=== PATIENT | female | born 1945 | race Caucasian/White ===

== ENCOUNTER 2016-06-20 19:28 | Emergency (ER) | payer OTHER ==
[~2016-06-20] VITALS: Ht 162.6 cm; Wt 57.6 kg
--- NOTE | ~2016-06-20 | EKG ---
[place] [address] [facility] [place] [address] ELECTROCARDIOGRAM REPORT Name: MALKANAYELY RICHEY Lilia Room #: [facility]#: [id number] Admission: 06/20/16 Attend Phys: Discharge: 06/20/16 Date of : 47 Report #: [id number] THIS REPORT FOR: //name// [facility] ED Test Date: 2016-06-20 Test Time: 20:30:47 Pat Name: NAYELY ACE Department: Room: Gender: F Ultrasonic Solderer: NABIL : 1945 Requested By: Aniyah Cassidy Order Number: [id number] MD: Saul Armijo Measurements Intervals [place] Rate: 64 P: 58 NM: 166 QRS: 26 QRSD: 77 T: 35 QT: 418 QTc: 432 Interpretive Statements Sinus rhythm Cannot rule out septal infarct, old Borderline low voltage, extremity leads No previous ECG available for comparison Electronically Signed On 06-21-2016 14:24:33 NETWORK TECHNICAL ANALYST by Saul Armijo [email or web address] <ELECTRONICALLY SIGNED> By: Saul Armijo MD, [facility] 06/21/16 1424 2030 29 Saul Armijo MD, FACC /EPI
[2016-06-20] MEDS ORDERED: LEXAPRO20 MG PO (20:19)
[2016-06-20] MEDS ORDERED: ATENOLOL 25MG T25 MG PO (20:19)
[2016-06-20] MEDS ORDERED: PRILOSEC 20 MG20 MG PO (20:20)
[2016-06-20] MEDS ORDERED: OXYCONTIN10 M1 PO (20:20)
[2016-06-20] MEDS ORDERED: XANAX 0.5 MG0.5 MG PO (20:21)
[2016-06-20 20:51] LABS: HEMATOCRIT 37.4 % (37.0-47.0); HEMOGLOBIN 13.1 gm/dL (12.0-15.0); MCH 31.1 pg (26.0-34.0); MCHC 34.9 % (28.0-37.0); MCV 89.1 fL (80.0-100.0); PLATELET COUNT 220 thou/uL (150-400); RDW 14.4 % (10.5-14.5); WBC 6.6 thou/uL (4.0-11.0)
[2016-06-20 21:14] LABS: MANUAL DIFF YES
[2016-06-20 21:20] LABS: URINE BILIRUBIN NEGATIVE (Negative); URINE BLOOD NEGATIVE (Negative); URINE COLOR YELLOW; URINE GLUCOSE-RANDOM* NEGATIVE (Negative); URINE KETONES NEGATIVE (Negative); URINE LEUKOCYTES-REFLEX NEGATIVE (Negative); URINE PROTEIN (DIPSTICK) NEGATIVE (Negative)
[2016-06-20 21:42] LABS: ANION GAP 5 mmol/L (7-16); BUN 12 mg/dL (7-18); CHLORIDE 99 mmol/L (98-107); CO2 32 mmol/L (21-32); CREATININE 0.6 mg/dL (0.6-1.3); GLUCOSE 113 mg/dL (70-99); POTASSIUM 3.8 mmol/L (3.5-5.1); SODIUM 136 mmol/L (136-145)
[2016-06-20 21:52] LABS: ABSOLUTE NEUTROPHILS 3.5 thou/uL (1.4-8.2); ATYPICAL LYMPHS 2 %; NUCLEATED RBCS 1 /100WBC; TOTAL CELL COUNT 100; TROPONIN-I < 0.04 ng/mL (<0.04-0.07)
[2016-06-20 23:13] VITALS: BP 96/67
== END 2016-06-20 23:14 | disposition home or self-care (01) ==
LOC: ER 19:28
PROVIDERS: Emergency Medicine
DX: I95.1 Orthostatic hypotension (principal); R42 Dizziness and giddiness; T50.995A Adverse effect of other drugs, medicaments and biological substances, initial encounter; I10 Essential (primary) hypertension; K21.9 Gastro-esophageal reflux disease without esophagitis; F32.9 Major depressive disorder, single episode, unspecified; F17.210 Nicotine dependence, cigarettes, uncomplicated; Z90.49 Acquired absence of other specified parts of digestive tract; Z98.890 Other specified postprocedural states; Z90.89 Acquired absence of other organs; Z88.2 Allergy status to sulfonamides; Z88.8 Allergy status to other drugs, medicaments and biological substances; Y92.89 Other specified places as the place of occurrence of the external cause

== ENCOUNTER 2016-10-13 20:27 | Inpatient (IN) | payer OTHER ==
[~2016-10-13] VITALS: Ht 165.1 cm; Wt 64.4 kg
--- NOTE | ~2016-10-13 | H ---
[facility] [place] [address] HISTORY AND PHYSICAL Name: NAYELY ACE Room #: 403-P ADM IN M.R.#: [id number] Admission: 10/13/16 Attend Phys: Nayan Ocampo MD, FAAF Discharge: Date of : 47 Report #: [id number] THIS REPORT FOR: //name// CC: Nayan Ocampo DATE OF SERVICE: 10/14/2016 CHIEF COMPLAINT: Pneumonia. HISTORY OF PRESENT ILLNESS: The patient is a 71-year-old white female admitted to the Emergency Department with a 3-day evolution of worsening shortness of breath, high fever, productive cough after having felt very well before getting sick. She is coughing a yellow green sputum. She was evaluated in the Emergency Room and found to have pneumonia. She is admitted for IV antibiotic therapy and pulmonary toilet. She is eating well, eliminating without difficulty. Since being in the hospital, she is feeling better. PAST MEDICAL HISTORY: Cholecystectomy, tubal ligation, , appendectomy, tonsillectomy, right wrist surgery, hypertension, reflux, total right hip replacement, depression, COPD. MEDICATIONS: Escitalopram 20 mg p.o. daily, atenolol 25 mg p.o. daily p.r.n. elevated blood pressure, omeprazole 20 mg p.o. daily, oxycodone 10 mg 1 p.o. q. 4 hours p.r.n. pain, alprazolam 0.5 mg p.o. q. 8 hours p.r.n. anxiety, multivitamin 1 p.o. daily. ALLERGIES: To STATINS, HMG-COA REDUCTASE INHIBITORS, SULFONAMIDE ANTIBIOTICS. SOCIAL HISTORY: She is recently , smokes cigarettes, is a retired nurse. FAMILY HISTORY: Noncontributory. REVIEW OF SYSTEMS: CONSTITUTIONAL: Fever or chills. No nausea, vomiting, diarrhea. EYES: No visual changes. ENT: No problems with hearing, swallow, taste or smell. CARDIOVASCULAR: No chest pain. She does have chest congestion and a productive cough. RESPIRATORY: She is short of breath with productive cough and a radiographically confirmed pneumonia. GASTROINTESTINAL: No abdominal pain. GENITOURINARY: No problems urinating. MUSCULOSKELETAL: She has widespread arthritic problems and was scheduled for a procedure for her ankle on the day of this admission, which had to be postponed. [address] [address] HISTORY AND PHYSICAL Name: NAYELY ACE Room #: 403-P [facility] IN [facility]#: [id number] Admission: 10/13/16 Attend Phys: Nayan Ocampo MD, FAAF Discharge: Date of : 47 Report #: [id number] DERMATOLOGIC: No disturbing lesions or rash. NEUROLOGIC: No paresis, paralysis or paresthesias. PSYCHIATRIC: Frustrated, but not depressed. Remainder of system review is negative. PHYSICAL EXAMINATION: VITAL SIGNS: Temperature 38.0, pulse 104, respirations 16, blood pressure 114/75, pulse ox on room air is 94%. She weighs 124.2 pounds or 56.34 kg. GENERAL: She is a pleasant white female in no acute distress. HEENT: Pupils equal, round, reactive to light and accommodation. Extraocular muscles intact. Pharynx erythematous. NECK: Supple. RESPIRATORY: She has scattered coarse breath sounds with diminished air movement in both lungs. ABDOMEN: Soft, nontender. EXTREMITIES: Nonedematous. NEUROLOGIC: She is intact without focal deficit. IMAGING: EKG shows normal sinus rhythm, rate 96, normal intervals, normal axis and nonspecific changes, no ischemic changes. LABORATORY EVALUATION: CBC: White count is 8.7, hemoglobin 12.7, hematocrit 36.7, platelets 294,000, 77% segmented neutrophils, 1% band forms, 12% lymphocytes, 10% monocytes. Serum chemistry: Sodium 128, potassium 4.3, chloride 95, CO2 27, BUN 6, creatinine 0.6, estimated glomerular filtration rate is 99, glucose 137, lactic acid 1.4, calcium is 8.7, total bilirubin 0.5, AST 31, ALT 16, alkaline phosphatase 90, creatinine kinase 61. Troponin less than 0.04, BNP 356, total protein 6.8, albumin 2.6. Chest x-ray done from the Emergency Department shows findings suggesting interstitial edema and infiltrate. ASSESSMENT: Community acquired pneumonia, chronic obstructive pulmonary disease with exacerbation, hyponatremia. PLAN: Admit to hospital. IV antibiotic therapy instituted in the Emergency Department. Continue home medications. Correct sodium. Follow labs and x-rays serially . Gram-positive cocci are noted in initial Gram stain. Preliminary results follow this closely, likely Streptococcal pneumoniae pneumonia. By: 00 25 Nayan Ocampo MD, FAAFP, FACEP /nt
--- NOTE | ~2016-10-13 | EKG ---
[address] [place] [address] ELECTROCARDIOGRAM REPORT Name: NAYELY ACE Room #: 403-P [facility] IN .R.#: [id number] Admission: 10/13/16 Attend Phys: Nayan Ocampo MD, FAAF Discharge: Date of : 46 Report #: [id number] THIS REPORT FOR: //name// [facility] ED Test Date: 2016-10-13 Test Time: 20:31:22 Pat Name: NAYELY ACE Department: Room: [facility] Gender: F Nut Blanker Operator: MIRYAM : 1945 Requested By: Sophia Nielson Order Number: [id number] MD: Saul Armijo Measurements Intervals [place] Rate: 96 P: 73 NJ: 150 QRS: 69 QRSD: 72 T: 50 QT: 315 QTc: 398 Interpretive Statements Sinus rhythm Probable left atrial enlargement Compared to ECG 06/20/2016 20:30:47 No significant change was found Electronically Signed On 10-14-2016 8:01:28 CDT by Saul Armijo [email or web address] <ELECTRONICALLY SIGNED> By: Saul Armijo MD, [facility] 10/14/16 0801 30 30 Saul Armijo MD, [facility] /EPI
[2016-10-13 20:27] VITALS: BP 114/75
[~2016-10-13 20:27] MED LIST: ATENOLOL 25MG T25 MG PO; LEXAPRO20 MG PO; OXYCONTIN10 M1 PO; PRILOSEC 20 MG20 MG PO; XANAX 0.5 MG0.5 MG PO
[2016-10-13 20:52] LABS: HEMATOCRIT 36.7 % (37.0-47.0); HEMOGLOBIN 12.7 gm/dL (12.0-15.0); MCH 30.4 pg (26.0-34.0); MCHC 34.7 g/dL (28.0-37.0); MCV 87.8 fL (80.0-100.0); PLATELET COUNT 294 thou/uL (150-400); RBC 4.18 mil/uL (4.20-5.00); RDW 14.3 % (10.5-14.5); WBC 8.7 thou/uL (4.0-11.0)
[2016-10-13 20:53] LABS: MANUAL DIFF YES
[2016-10-13 21:02] LABS: ANION GAP 6 mmol/L (7-16); BUN 6 mg/dL (7-18); CALCIUM 8.7 mg/dL (8.5-10.1); CHLORIDE 95 mmol/L (98-107); CO2 27 mmol/L (21-32); CREATININE 0.6 mg/dL (0.6-1.0); GLUCOSE 137 mg/dL (74-106); POTASSIUM 4.3 mmol/L (3.5-5.1); SODIUM 128 mmol/L (136-145)
[2016-10-13 21:13] LABS: ALBUMIN 2.6 g/dL (3.4-5.0); ALKALINE PHOSPHATASE 90 U/L (46-116); NT-PRO BRAIN NAT PEPTIDE 356 pg/mL (<300); SGOT 31 U/L (15-37); SGPT 16 U/L (30-65); TOTAL BILIRUBIN 0.5 mg/dL (<0.1-1.0); TOTAL PROTEIN 6.8 g/dL (6.4-8.2); TROPONIN-I < 0.04 ng/mL (<0.04-0.07)
[2016-10-13] MEDS ORDERED: MULTI VITAMIN1 EACH PO (21:13)
[2016-10-13 21:17] LABS: TOTAL CELL COUNT 100
[2016-10-13 21:19] LABS: ABSOLUTE NEUTROPHILS 6.8 thou/uL (1.4-8.2)
[2016-10-13 22:49] VITALS: BP 118/55
[2016-10-13 23:04] VITALS: BP 123/63
[2016-10-14] MEDS ORDERED: OXYCODONE HCL10 MG PO (01:28)
[2016-10-14 03:22] VITALS: BP 107/60
[2016-10-14 08:00] VITALS: BP 97/52
[2016-10-14 16:00] VITALS: BP 106/45
[2016-10-14 19:04] VITALS: BP 116/55
[2016-10-15 02:47] VITALS: BP 115/54
[2016-10-15 08:59] VITALS: BP 110/59
[2016-10-15 15:51] VITALS: BP 109/61
[2016-10-15 19:00] VITALS: BP 117/54
[2016-10-16 03:37] VITALS: BP 127/75
[2016-10-16 06:04] LABS: MCH 29.2 pg (26.0-34.0); MCHC 33.3 g/dL (28.0-37.0); MCV 87.9 fL (80.0-100.0); PLATELET COUNT 337 thou/uL (150-400); RBC 3.64 mil/uL (4.20-5.00); RDW 14.7 % (10.5-14.5); WBC 21.1 thou/uL (4.0-11.0)
[2016-10-16 06:07] LABS: HEMOGLOBIN 10.7 gm/dL (12.0-15.0)
[2016-10-16 06:08] LABS: MANUAL DIFF YES
[2016-10-16 06:25] LABS: CALCIUM 8.4 mg/dL (8.5-10.1); CREATININE 0.5 mg/dL (0.6-1.0)
[2016-10-16 07:14] VITALS: BP 134/77
[2016-10-16 07:26] LABS: ABSOLUTE NEUTROPHILS 19.4 thou/uL (1.4-8.2); MYELOCYTES 1 %; TOTAL CELL COUNT 100
[2016-10-16 07:27] LABS: ANISOCYTOSIS 1+; HYPOCHROMASIA 1+
[2016-10-16 16:33] VITALS: BP 130/76
[2016-10-16 20:00] VITALS: BP 124/72
[2016-10-17 04:00] VITALS: BP 118/58
[2016-10-17 08:36] VITALS: BP 136/83
[2016-10-17 15:53] VITALS: BP 139/81
[2016-10-17 20:24] VITALS: BP 133/69
[2016-10-18 03:16] VITALS: BP 127/76
[2016-10-18 04:23] LABS: HEMATOCRIT 32.7 % (37.0-47.0); HEMOGLOBIN 11.3 gm/dL (12.0-15.0); MCHC 34.5 g/dL (28.0-37.0); MCV 87.2 fL (80.0-100.0); PLATELET COUNT 360 thou/uL (150-400); RBC 3.75 mil/uL (4.20-5.00); RDW 14.6 % (10.5-14.5); WBC 12.3 thou/uL (4.0-11.0)
[2016-10-18 04:30] LABS: CALCIUM 8.5 mg/dL (8.5-10.1); CREATININE 0.6 mg/dL (0.6-1.0); POTASSIUM 3.6 mmol/L (3.5-5.1)
[2016-10-18 04:31] LABS: MANUAL DIFF YES
[2016-10-18 07:15] LABS: ABSOLUTE NEUTROPHILS 10.6 thou/uL (1.4-8.2); PLATELET ESTIMATE NORMAL; TOTAL CELL COUNT 100
[2016-10-18 08:00] VITALS: BP 144/85
[2016-10-18 15:59] VITALS: BP 141/94
[2016-10-18 20:00] VITALS: BP 129/91
[2016-10-19] VITALS (7 sets, daily range): BP systolic 132–144; BP diastolic 73–788
[2016-10-19] MEDS ORDERED: AUGMENTIN 875875 MG PO (15:49)
[2016-10-19] MEDS ORDERED: ZPAK PO (15:50)
[2016-10-20 03:49] VITALS: BP 123/59
[2016-10-20 07:15] VITALS: BP 128/59
[2016-10-20 13:15] VITALS: BP 133/68
== END 2016-10-20 17:01 | disposition home or self-care (01) | DRG 871 ==
LOC: ER 20:27 → EROBS 22:14 → 4N 22:14
PROVIDERS: Emergency Medicine; Family Medicine
DX: A41.9 Sepsis, unspecified organism (principal); J18.9 Pneumonia, unspecified organism; J44.0 Chronic obstructive pulmonary disease with (acute) lower respiratory infection; E87.1 Hypo-osmolality and hyponatremia; J44.1 Chronic obstructive pulmonary disease with (acute) exacerbation; I10 Essential (primary) hypertension; K21.9 Gastro-esophageal reflux disease without esophagitis; D72.829 Elevated white blood cell count, unspecified; Z96.641 Presence of right artificial hip joint; F32.9 Major depressive disorder, single episode, unspecified; Z88.2 Allergy status to sulfonamides; Z90.49 Acquired absence of other specified parts of digestive tract
CPT/HCPCS: 10091

== ENCOUNTER → 2016-10-28 | Outpatient (CLI) | payer OTHER ==
[~2016-10-28] MED LIST changes: +AUGMENTIN 875875 MG PO; +MULTI VITAMIN1 EACH PO; +OXYCODONE HCL10 MG PO; +ZPAK PO
== END ==
LOC: RAD 13:42
DX: J18.9 Pneumonia, unspecified organism (principal)

== ENCOUNTER → 2017-07-02 | Outpatient (CLI) | payer OTHER | LOC: CAT 11:01 | DX: Z13.6 Encounter for screening for cardiovascular disorders (principal) ==

== ENCOUNTER → 2017-09-15 | Outpatient (CLI) | payer OTHER | LOC: HYPER 06:51 | DX: L89.153 Pressure ulcer of sacral region, stage 3 (principal); I10 Essential (primary) hypertension; K21.9 Gastro-esophageal reflux disease without esophagitis; D84.9 Immunodeficiency, unspecified; M81.0 Age-related osteoporosis without current pathological fracture; F32.9 Major depressive disorder, single episode, unspecified; J44.9 Chronic obstructive pulmonary disease, unspecified; Z96.641 Presence of right artificial hip joint; Z87.891 Personal history of nicotine dependence ==

== ENCOUNTER → 2019-10-02 | Outpatient (CLI) | payer OTHER | LOC: RAD 14:18 | DX: M97.01XA Periprosthetic fracture around internal prosthetic right hip joint, initial encounter (principal) ==

== ENCOUNTER 2019-11-13 11:15 | Inpatient (IN) | payer OTHER ==
[~2019-11-13] VITALS: Ht 152.4 cm; Wt 53.6 kg
[2019-11-13 11:37] VITALS: BP 159/75
[2019-11-13 12:06] LABS: ABSOLUTE NEUTROPHILS 5.9 thou/uL (1.4-8.2); BASOPHILS 0.8 % (0.0-2.0); HEMATOCRIT 39.9 % (37.0-47.0); HEMOGLOBIN 13.5 gm/dL (12.0-15.0); LYMPHOCYTES 13.9 % (24.0-44.0); MCH 29.3 pg (26.0-34.0); MCHC 33.7 g/dL (28.0-37.0); MONOCYTES 7.6 % (1.0-8.0); PLATELET COUNT 249 thou/uL (150-400); POLYS 77.7 % (36.0-66.0); RBC 4.58 mil/uL (4.20-5.00); RDW 14.9 % (10.5-14.5); WBC 7.6 thou/uL (4.0-11.0)
--- NOTE | 2019-11-13 12:10 | NUR ---
SPOKE TO DR. ORLANDO AT THIS TIME - HE SPOKE TO SON WHO STATED PT FELL 1 MONTH AGO AND HAD FEVER WITH T MAX OF 98.9. PT HAS BEEN ACTING NOT HER NORMAL SELF FOR 2-3 DAYS, HX OF NON-HODGKINS LYMPHOMA. WILL CONTINUE TO MONITOR CLOSELY.
--- NOTE | 2019-11-13 12:15 | NUR ---
ADDRESS: [facility] [address], [place] [address] PHONE: [phone] EMERGENCY CONTACT: ANUPAM ACE PHONE: [phone]
[2019-11-13 12:16] LABS: URINE BILIRUBIN NEGATIVE (Negative); URINE BLOOD NEGATIVE (Negative); URINE CLARITY SL CLOUDY; URINE COLOR YELLOW; URINE GLUCOSE-RANDOM* NEGATIVE (Negative); URINE KETONES 1+ (Negative); URINE LEUKOCYTES-REFLEX NEGATIVE (Negative); URINE NITRITE-REFLEX NEGATIVE (Negative); URINE PROTEIN (DIPSTICK) NEGATIVE (Negative); URINE SPECIFIC GRAVITY 1.015 (1.005-1.035); URINE UROBILINOGEN 0.2 E.U./dl (0.2-1.0)
[2019-11-13 12:18] LABS: CALCIUM 9.6 mg/dL (8.5-10.1); CREATININE 0.8 mg/dL (0.6-1.0); POTASSIUM 4.6 mmol/L (3.5-5.1)
[2019-11-13 12:24] LABS: ALBUMIN 3.6 g/dL (3.4-5.0); TOTAL BILIRUBIN 1.1 mg/dL (0.2-1.0); TOTAL PROTEIN 7.7 g/dL (6.4-8.2)
[2019-11-13 12:35] LABS: AMP/METHAMP Negative (Negative); BARBITURATES Negative (Negative); BENZODIAZEPINES POSITIVE (Negative); COCAINE Negative (Negative); METHADONE POSITIVE (Negative); OPIATES Negative (Negative); PCP Negative (Negative)
[2019-11-13 15:14] VITALS: BP 136/68
[2019-11-13 15:54] VITALS: BP 142/63
[2019-11-13 16:55] VITALS: BP 132/72
--- NOTE | 2019-11-13 18:41 | NUR ---
Patient arrived on unit at 1605 from ED. Patient's son brought his mother to ED due to lethargy. Patient was unable to stay awake during ED assessment. She was also awake for parts of this nurse's assessment, some Admission information recieved from son via telephone. Patient has informed this nurse that she has had a headache for the last two days. Son informed this nurse that his mother was confused this am, talking about her mother, asking her son Ambrose, "where is my son Ambrose?" Dr Ocampo notified at 1600 of patient's pending Admission to . Dr Ocampo informed this nurse that he will arrive on unit at approximately 1800. He is currently here putting in orders. Patient is independent will all cares. She ambulates with a study gait. She is currently eating her Dinner with NS running in IV at left AC. Will report to on-coming nurse.
[2019-11-13 21:00] VITALS: BP 123/72
[2019-11-13] MEDS ORDERED: DULOXETINE HCL60 MG PO (23:22)
[2019-11-13] MEDS ORDERED: METHADONE HCL 110 M1 PO (23:30)
[2019-11-13] MEDS ORDERED: REMERON15 M2 PO (23:33)
[2019-11-13] MEDS ORDERED: ASPIRIN325 PO (23:39)
[2019-11-13] MEDS ORDERED: DOCUSATE SODIU250 MG PO (23:47)
--- NOTE | 2019-11-14 04:02 | NUR ---
PT TRANSFERRED FROM [facility] @2100. ON ASSESSMENT PT A&OX3 SOMETIMES FORGETFULL. IV INTACT AND FLUIDS INFUISING. [facility]REC DONE AND HOME MEDICATION SENT DOWNSTAIRS TO PHARMACY. UP WITH SBA TO THE BATHROOM. FALL PREC IN PLACE AND CALL LIGHT IN REACH. WILL CONT WITH POC TILL EOS.
[2019-11-14 04:14] VITALS: BP 100/65
[2019-11-14 06:29] LABS: HEMOGLOBIN 11.9 gm/dL (12.0-15.0); MCH 28.8 pg (26.0-34.0); MCV 87.4 fL (80.0-100.0); PLATELET COUNT 234 thou/uL (150-400); RBC 4.12 mil/uL (4.20-5.00); RDW 15.2 % (10.5-14.5); WBC 6.6 thou/uL (4.0-11.0)
[2019-11-14 06:35] LABS: CALCIUM 8.6 mg/dL (8.5-10.1); CREATININE 0.6 mg/dL (0.6-1.0); POTASSIUM 3.8 mmol/L (3.5-5.1)
[2019-11-14 07:55] VITALS: BP 127/77
--- NOTE | 2019-11-14 08:28 | EKG ---
[facility] [place] [address] ELECTROCARDIOGRAM REPORT Name: NAYELY ACE Room #: 446- ADM IN M.R.#: [id number] Admission: 11/13/19 Attend Phys: Nayan Ocampo MD, FAAF Discharge: Date of : 46 Report #: [id number] THIS REPORT FOR: cc: Nayan Ocampo MD FAA FACE Nayan Ocampo MD FAA FACE Saul Armijo MD [facility] THIS REPORT FOR: //name// [facility] ED Test Date: 2019-11-13 Test Time: 11:33:37 Pat Name: NAYELY ACE Department: Room: 44 Gender: F Superintendent Building: NUPUR : 1945 Requested By: Daryn Nash Order Number: [id number] MD: Saul Armijo Measurements Intervals [place] Rate: 91 P: 80 ME: 154 QRS: 62 QRSD: 74 T: 51 QT: 344 QTc: 424 Interpretive Statements Sinus rhythm Leftward axis Compared to ECG 10/13/2016 20:31:22 No significant changes Electronically Signed On 11-14-2019 8:26:43 CDT by Saul Armijo [email or web address] <ELECTRONICALLY SIGNED> By: Saul Armijo MD, [facility] 11/14/19 0826 1133 1133 Saul Armijo MD, [facility] /EPI
[2019-11-14 08:43] LABS: ABSOLUTE NEUTROPHILS 3.3 thou/uL (1.4-8.2); ATYPICAL LYMPHS 6 %
[2019-11-14 08:44] LABS: ANISOCYTOSIS SLIGHT; LARGE PLATELETS OCCASIONAL
--- NOTE | 2019-11-14 15:52 | NUR ---
ASSESSMENT: CM REVIEWED CHART AND MET WITH PATIENT. PT IS ALERT AND ORIENTED X4. PT REPORTS SHE LIVES AT HOME WITH HER SON. PT REPORTS THAT SHE HAS ABOUT 4 STEPS WITH HANDRAILS TO ENTER THROUGH THE FRONT BUT HAS A RAMP TO ENTER THROUGH THE BACK. PT REPORTS HER BEDROOM IS ON THE MAIN LEVEL. PT REPORTS SHE AMBULATES USING A CANE AT TIMES. PT STATES SHE HAS HAD [facility] IN THE PAST BUT NOT CURRENTLY. PT REPORTS SHE HAS NOT BEEN TO A SNF BUT USED TO WORK AT ONE. PT REPORTS THAT DR. GALLEGOS IS GOING TO DO A WORKUP TO SEE IF HER NON-HODGKINS LYMPHOMA IS BACK SHE STATES IT HAD BEEN IN REMISSION. CM WILL CONTINUE TO FOLLOW TO ASSIST NEEDED.
--- NOTE | 2019-11-14 16:43 | NUR ---
PT ASSESSED AT START OF SHIFT. PT FEELING BETTER TODAY. NO LONGER CONFUSED. DOES HAVE POOR APPETITE BUT DENIES NAUSEA. SODIUM SOME BETTER. AMBULATING STEADY TO THE BATHROOM. DR. GALLEGOS HERE THIS AFTERNOON. CALEB NOTED.
[2019-11-14 17:23] VITALS: BP 109/53
[2019-11-14 19:21] VITALS: BP 107/64
--- NOTE | 2019-11-15 02:25 | NUR ---
ASSESSED AT START OF SHIFT PT SITTING UP IN BED MORE AWAKE AND ALERT THIS SHIFTX4 FOR THIS NURSE. ASKED FOR MIDNIGHT SNACKS, CRACKERS AND VANILLA PUDDING PROVIDED PT TOLERATED IT WELL. EVENING MEDS GIVEN. OLD IV LEAKING NEW IV PLACED IN LEFT WRIST IV FLUIDS INFUSING. FALL PREC IN PLACE AND CALL LIGHT IN REACH WILL CONT WITH POC TILL EOS.
[2019-11-15 05:16] VITALS: BP 102/60
[2019-11-15 05:44] LABS: HEMATOCRIT 33.6 % (37.0-47.0); HEMOGLOBIN 11.3 gm/dL (12.0-15.0); MCH 29.5 pg (26.0-34.0); MCHC 33.5 g/dL (28.0-37.0); PLATELET COUNT 215 thou/uL (150-400); RBC 3.82 mil/uL (4.20-5.00); WBC 6.5 thou/uL (4.0-11.0)
[2019-11-15 06:12] LABS: ALBUMIN 2.6 g/dL (3.4-5.0); CALCIUM 8.5 mg/dL (8.5-10.1); CREATININE 0.5 mg/dL (0.6-1.0); POTASSIUM 3.5 mmol/L (3.5-5.1); TOTAL BILIRUBIN 0.6 mg/dL (0.2-1.0); TOTAL PROTEIN 5.6 g/dL (6.4-8.2)
[2019-11-15 07:20] VITALS: BP 104/62
[2019-11-15 11:50] LABS: ABSOLUTE NEUTROPHILS 3.1 thou/uL (1.4-8.2); ANISOCYTOSIS SLIGHT
--- NOTE | 2019-11-15 14:42 | NUR ---
ASSUMED CARE OF THE PT AT 0700. PT IS STANDBY ASSIST WITH GAIT BELT AND WALKER/IV POLE. NO C/O PAIN. PT HAS MEDS IN PHARMACY. PT HAD MRI/CT SCAN DONE/R/O STROKE/MINOR R SIDE FACIAL DROOPING. IV RESTARTED 22 G DRY AND INTACT. FALL PRECAUTIONS IN PLACE, BED IN THE LOWEST POSITION/BED ALARM ON, CALL LIGHT WITHIN REACH. WILL CONTINUE TO MONITOR THE PT. LEFT V/M FOR PTS SON TO CALL FOR UPDATE ON PT.
[2019-11-15 16:20] VITALS: BP 107/69
[2019-11-15 19:50] VITALS: BP 98/58
--- NOTE | 2019-11-16 02:31 | NUR ---
ASSUMED PT CARE AT 1900. PT A&Ox4 TONIGHT. PAIN
[2019-11-16 04:45] VITALS: BP 106/62
[2019-11-16 05:00] VITALS: BP 121/83
[2019-11-16 06:40] LABS: CHOLESTEROL 95 mg/dL (<200); HDL CHOLESTEROL 5 mg/dL (>40); LDL CHOLESTEROL 55 mg/dL (<100); SERUM ASSESSMENT Clear; TRIGLYCERIDE 175 mg/dL (<150); VLDL 35 mg/dL (<40)
--- NOTE | 2019-11-16 07:02 | HC ---
[facility] [place] [address] CONSULTATION Name: NAYELY ACE Room #: 446-P ADM IN M.R.#: [id number] Admission: 11/13/19 Attend Phys: Nayan Ocampo MD, FAAF Discharge: Date of : 46 Report #: [id number] THIS REPORT FOR: cc: Nayan Ocampo MD FAA FACEP Nayan Ocampo MD FAA FACEP Arturo Fierro MD ~ CC: Ramón Ocampo MD REQUESTING PHYSICIAN: Dr. Mc Ocampo. REASON FOR CONSULTATION: Altered mental status with history of lymphoma. HISTORY OF PRESENT ILLNESS: The patient is a very pleasant 74-year-old female who was brought in about 2 days ago for altered mental status and had a sodium of about 130. This has improved and her mentation has improved. She tells me that she is not quite back to normal. Her thinking is slightly slow, but she does not notice any other troubles. I noticed when I look at her that she has some mild left facial drooping that the nurse did not seem to be aware of, notes do not mention that. I showed the patient a picture of herself using the selfie mode in my camera and she agrees that she has not noticed that before. Neurology had supposedly seen her, but I find no note on the chart to know whether they had ____, she had not been aware of it. Because ____ caution, we will order an MRI head. The patient had last seen Dr. Fish Godfrey on 07/03/2019. At that time, he thought she was in remission. The patient currently denies any headache, visual changes. She does feel like her thinking is a little bit slow, especially finding words, but eventually gets there. She appears to be speaking the words well. I do not know her, but her speech and thought pattern appear to be grossly normal. She does have, I mentioned, just a little bit of left facial droop. She denies any pocketing or drooling. She denies any fevers or chills or swallowing difficulties, breathing difficulties. She does tell me she has lost maybe 5-10 pounds lately. She is not sure why, could be the connor pandemic, stress she said. No diarrhea, no constipation, no blood in her urine or stool. No enlarged lymph nodes. No rash. No arm or leg swelling. No heat or cold intolerance. 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 The patient received only 4 cycles of R-CHOP, was in complete remission after 6 cycles. Also, has a history of hypertension, COPD, I think, hyperlipidemia and depression. 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 Smokes up until the time of admission. No [facility] [address] [place] [address] CONSULTATION Name: NAYELY ACE Room #: 446-P [facility] IN M.R.#: [id number] Admission: 11/13/19 Attend Phys: Nayan Ocampo MD, FAAF Discharge: Date of : 47 Report #: [id number] significant alcohol, no street drugs. FAMILY HISTORY: Father had heart trouble. Mother, she is not sure. One brother who had a number of health issues. Four children, no health issues. Has 5 dogs at home. MEDICATIONS: At this time in the hospital include escitalopram 20 mg daily, Xanax 0.5 q. 8 p.r.n., aspirin 325 mg daily, methadone 10 mg b.i.d. We need to clarify what that is for. LABORATORY REVIEW: Here shows that BUN of 10, creatinine of 0.5. Liver functions normal. Albumin 2.6 after hydration. White count 6.5, hemoglobin 11.3, was 13.5 on admission. Platelets 215. Differential essentially normal. UA was fairly unremarkable. Imaging here on admission included CT head, which was nonacute. PHYSICAL EXAMINATION: VITAL SIGNS: Height is 5 feet 4 inches, 152.4 cm, weight 118.2 pounds or 53.6 kilograms. Blood pressure 102/60, O2 sat 94%, respirations 18, pulse 80, temperature 98.4. NEUROLOGIC: Face is symmetric except for some left facial drooping. When she raises her eyes or clenches her mouth, it is still slightly noticeable. As mentioned above, speech and thought pattern appear to be grossly normal, though she reports some slight slowness. LYMPHATICS: No enlarged lymph nodes in the supraclavicular, cervical, axillary, inguinal, epitrochlear region. LUNGS: Clear, symmetric without rhonchi, wheezes or rales. HEART: Regular rate. ABDOMEN: Soft, without masses, nontender. EXTREMITIES: Without clubbing or cyanosis. Sensation is normal to confrontation. She is moving, strength appears to be generally normal. She does use a walker. ASSESSMENT AND PLAN: 1. History of germinal center stage 4B non-Hodgkin's lymphoma from 07/2017, thought to be in remission. We will order CAT scans as the patient had mental status changes when she was diagnosed. We will ask ____ over, so we can compare. 2. Mental status changes with hyponatremia, but also possibly new left facial droop. We will order MRI head. The patient already on aspirin. I have asked the nurse to notify Dr. Mc Ocampo and also Neurology. 3. Hypertension. Meds per others. 4. Mood, per others. 5. Chronic obstructive pulmonary disease. Meds per others. [facility] [address] [place] [address] CONSULTATION Name: NAYELY ACE Yolande Room #: 446-P ADM IN ..#: [id number] Admission: 11/13/19 Attend Phys: N[facility]campo MD, [facility] Dis[facility]: Date of : 46 Report #: [id number] We will follow with you. <ELECTRONICALLY SIGNED> By: Arturo Fierro MD 11/16/19 0702 0658 0813 Arturo Fierro MD /nt
[2019-11-16 07:10] VITALS: BP 105/64
--- NOTE | 2019-11-16 14:52 | NUR ---
on-going assessment: CM REVIEWED CHART AND SPOKE WITH PT. ATTENDING HAS PLACED A CONSULT FOR 5N. [facility]N [facility] STATES THEY FEEL PATIENT WILL BE A GOOD CANIDATE AND THEY ARE WAITING ON OT TO SEE PATIENT AND THEN WILL SUBMIT FOR INSURANCE AUTH. WILL AWAIT FURTHER INPUT FROM 5N AT THIS TIME.
[2019-11-16 16:25] VITALS: BP 114/70
--- NOTE | 2019-11-16 16:39 | NUR ---
PT ASSESSED AT START OF SHIFT. DR. CORONADO IN EARLY TO SPEAK W/ PT RE CT SCAN RESULTS. REHAB CONSULT BY DR. HASTINGS FOR 5N. STILL HAS SLIGHT LT FACIAL WEAKNESS. SPEECH EVAL AND PT NOW ON THICKENED LIQUIDS. MEMORY SEEMS BETTER TODAY.
--- NOTE | 2019-11-16 17:23 | NUR ---
PATIENT SEEN THIS DATE BY DR. HASTINGS FOR REHAB CONSULT. PATIENT IS A CANDIDATE FOR AN ACUTE REHAB STAY. MOLD LAMINATOR SPOKE WITH PATIENT FURTHER EXPLAINING ACUTE REHAB TO PATIENT. PATIENT WAS AGREEABLE TO ACUTE REHAB STAY AND EXPRESSED WANTING TO COME TO [facility] ACUTE REHAB. DR. GALLEGOS STATES POSSIBLE ADMISSION TO REHAB TOMORROW. AUTHORIZATION REQUESTED THIS DATE.
[2019-11-16 19:42] VITALS: BP 146/61
[2019-11-16 20:27] LABS: TSH 0.786 uIU/mL (0.358-3.740)
--- NOTE | 2019-11-17 02:14 | NUR ---
ASSUMED PT CARE AT 1900. PT MUCH MORE ENERGETIC THIS EVENING. UPSET THAT DOSE OF METHADONE WAS 10MG, SHE CLAIMS TO TAKE [address] NOTIFIED AND ORDER CHANGED. ANTIBIOTIC STARTED THIS EVENING. TOLERATING NECTAR THICK LIQUIDS WELL. UP TO TOILET WITH STANDBY. CURRENTLY RESTING WITH EYES CLOSED.
[2019-11-17 04:34] VITALS: BP 125/72
[2019-11-17 06:11] LABS: HEMATOCRIT 32.3 % (37.0-47.0); HEMOGLOBIN 11.1 gm/dL (12.0-15.0); MCHC 34.3 g/dL (28.0-37.0); MCV 87.7 fL (80.0-100.0); PLATELET COUNT 197 thou/uL (150-400); RBC 3.68 mil/uL (4.20-5.00); RDW 15.3 % (10.5-14.5); WBC 6.3 thou/uL (4.0-11.0)
[2019-11-17 06:20] LABS: APTT 27.4 Seconds (24.5-32.8); INR 1.1; PROTIME 10.9 Seconds (9.3-11.4)
[2019-11-17 07:13] LABS: ALBUMIN 2.7 g/dL (3.4-5.0); CALCIUM 8.6 mg/dL (8.5-10.1); CREATININE 0.6 mg/dL (0.6-1.0); TOTAL BILIRUBIN 0.4 mg/dL (0.2-1.0); TOTAL PROTEIN 5.7 g/dL (6.4-8.2)
[2019-11-17 08:04] VITALS: BP 103/55
--- NOTE | 2019-11-17 11:32 | 2DMMODE ---
[facility] [address] [place] [address] 2 D/M-MODE ECHOCARDIOGRAM Name: NAYELY ACE Room #: 446-P ADM IN M.R.#: [id number] Admission: 11/13/19 Attend Phys: Nayan Ocampo MD, FAAF Discharge: Date of : 46 Report #: [id number] THIS REPORT FOR: cc: Nayan Ocampo MD, FAAFP FACENayan Sanderson MD FAACHRISTEN FACEWalker Smith MD ~ APPROVED REPORT Study performed: 11/17/2019 09:02:36 EXAM: Comprehensive 2D, Doppler, and color-flow Echocardiogram Patient Location: Bedside Room #: 446 Status: routine BSA: 1.49 HR: 91 bpm BP: 103/55 mmHg Rhythm: NSR Other Information Study Quality: Adequate/foreshortened apicals. Indications CVA. Hx: COPD, HTN. Echo Enhancing Agent Indication: Rule out Shunt Agent(s) / Amount(s) Used: Agitated Saline 7 cc 2D Dimensions IVSd: 9.15 (7-11mm) LVOT Diam: 20.59 (18-24mm) LVDd: 36.69 mm PWd: 9.14 (7-11mm) Ascending Ao: 35.81 (22-36mm) LVDs: 24.49 (25-40mm) Aortic Root: 36.74 mm Aortic Valve AoV Peak Everett.: 1.26 m/s AO Peak Gr.: 6.35 mmHg LVOT Max P.12 mmHg LVOT Max V: 0.88 m/s THEODORE Vmax: 2.33 cm2 Mitral Valve [facility] [address] [place] [address] 2 D/M-MODE ECHOCARDIOGRAM Name: MALKANAYELY B Room #: 446-P [facility] IN [facility]#: [id number] Admission: 11/13/19 Attend Phys: Nayan Ocampo MD, Discharge: Date of : 47 Report #: [id number] E/A Ratio: 0.8 MV Decel. Time: 178.57 ms MV E Max Everett.: 0.43 m/s MV A Everett.: 0.56 m/s MV PHT: 51.78 ms IVRT: 65.74 ms Pulmonary Valve PV Peak Everett.: 0.80 m/s PV Peak Gr.: 2.56 mmHg Tricuspid Valve TR Peak Everett.: 3.07 m/s RAP Estimate: 5.00 mmHg TR Peak Gr.: 38.00 mmHg PA Pressure: 43.00 mmHg Left Ventricle The left ventricle is normal size. There is normal LV segmental wall motion. There is normal left ventricular wall thickness. Left ventricular systolic function is normal. LVEF is 60-65%. Mild diastolic dysfunction is present (impaired relaxation pattern). Right Ventricle The right ventricle is normal size. The right ventricular systolic function is normal. Atria The left atrium size is normal. No shunting noted by contrast bubble injection. The right atrium size is normal. Aortic Valve Aortic valve leaflets are mildly thickened. Trace to mild aortic regurgitation. There is no aortic valvular stenosis. Mitral Valve The mitral valve is normal in structure. There is no mitral valve regurgitation noted. No evidence of mitral valve stenosis. Tricuspid Valve The tricuspid valve is normal in structure. Moderate tricuspid regurgitation. Estimated PAP is 40-45mmHg. Pulmonic Valve The pulmonary valve is normal in structure. Trace pulmonic regurgitation. [facility] [address] [place] [address] 2 D/M-MODE ECHOCARDIOGRAM Name: NAYELY ACE Room #: 446-P ADM IN M.R.#: [id number] Admission: 11/13/19 Attend Phys: Nayan Ocampo MD, Discharge: Date of : 47 Report #: [id number] Great Vessels Aortic root is borderline dilated. The ascending aorta is normal in size. IVC is normal in size and collapses >50% with inspiration. Pericardium There is no pericardial effusion. <Conclusion> The left ventricle is normal size. LVEF is 60-65%. Aortic valve leaflets are mildly thickened. Trace to mild aortic regurgitation. The mitral valve is normal in structure. The tricuspid valve is normal in structure. Moderate tricuspid regurgitation. Estimated PAP is 40-45mmHg. The pulmonary valve is normal in structure. Trace pulmonic regurgitation. There is no pericardial effusion. No shunting noted by contrast bubble injection. <ELECTRONICALLY SIGNED> By: Walker Chung MD 11/17/19 1129 1129 1129 Walker Chung MD /INF
[2019-11-17 13:05] LABS: ABSOLUTE NEUTROPHILS 3.7 thou/uL (1.4-8.2)
[2019-11-17 13:06] LABS: ANISOCYTOSIS 1+
--- NOTE | 2019-11-17 17:39 | NUR ---
ASSUMED CARE OF THE PT AT 0700. PT IS ,INIMUM ASSIST WITH GAIT BELT AND WALKER. PT UPDATED FAMILY BY SELF, NO CALLS MADE. R FOREARM IV DRY AND INTACT. MEDS GIVEN FOR PAIN, SEE EMAR. PT WILL GO TO 5N TOMORROW DUE TO NOT HAVING D/C ORDERS IN THE COMPUTER,5N PEARL GLUE DRIER SPOKE WITH PT. FALL PRECAUTIONS IN PLACE, BED IN THE LOWEST POSITION, BED/CHAIR ALARM ON, CALL LIGHT IS WITHIN REACH. WILL CONTINUE TO MONITOR THE PT.
[2019-11-17 20:34] VITALS: BP 117/56
--- NOTE | 2019-11-17 23:57 | NUR ---
1900 ASSUMED CARE OF PT AFTER BEDSIDE REPORT, PT RESTING IN BED AWAKE AND ALERT. 2100 BASELINE ASSESSMENT COMPLETED, CHARTED LATE, PT AWAKE ALERT AND ORIENTED X 4 PERRLA, GLASS WASHER EQUAL, PUSHES AND PULLS EQUAL, SENSATION INTACT . PT SKIN P/W/D, RESP UNLABORED, NO COMPLAINTS OF PAIN OR DISCOMFORT, PT IS READY TO "MOVE TO REHAB", FALL PRECAUTIONS IN PLACE, WILL CONTINUE TO MONITOR
[2019-11-18 05:15] VITALS: BP 107/46
[2019-11-18 08:46] VITALS: BP 106/58
[2019-11-18] MEDS ORDERED: CLOPIDOGREL75 MG PO (12:53)
[2019-11-18] MEDS ORDERED: CEFUROXIME500 MG PO (12:53)
--- NOTE | 2019-11-18 14:59 | NUR ---
VSS-AFEBRILE. LUNGS CLEAR-ROOM AIR. PAIN WELL CONTROLLED WITH PO SCHEDULED METHADONE. DISCHARGE TO REHAB TODAY. PROCESS DELAYED DUE TO DIFFICULTY REACHING NURSE TO GIVE REPORT. IV REMOVED FROM LEFT WRIST. TRANSFERRED WITH ALL PERSONAL BELONGINGS.
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
== END 2019-11-18 15:37 | DRG 64 ==
LOC: ER 11:15 → 4S 14:38 → EROBS 14:38 → 4W 15:58 → 4S 21:44
PROVIDERS: Emergency Medicine; Psychiatry & Neurology Neuromuscular Medicine; ADMIT Family Medicine; ATTEND Family Medicine
DX: I63.9 Cerebral infarction, unspecified (principal); J18.9 Pneumonia, unspecified organism; E87.1 Hypo-osmolality and hyponatremia; E87.6 Hypokalemia; I10 Essential (primary) hypertension; K21.9 Gastro-esophageal reflux disease without esophagitis; Z96.641 Presence of right artificial hip joint; F32.9 Major depressive disorder, single episode, unspecified; J44.9 Chronic obstructive pulmonary disease, unspecified; F17.210 Nicotine dependence, cigarettes, uncomplicated; F39 Unspecified mood [affective] disorder; R13.10 Dysphagia, unspecified; J40 Bronchitis, not specified as acute or chronic; Z85.72 Personal history of non-Hodgkin lymphomas; Z79.82 Long term (current) use of aspirin; Z90.89 Acquired absence of other organs; Z79.891 Long term (current) use of opiate analgesic; Z79.899 Other long term (current) drug therapy; Z90.49 Acquired absence of other specified parts of digestive tract; Z88.2 Allergy status to sulfonamides; Z88.8 Allergy status to other drugs, medicaments and biological substances; I63.89 Other cerebral infarction
CPT/HCPCS: 10102

== ENCOUNTER 2019-11-17 16:15 | Inpatient (IN) | payer OTHER ==
[~2019-11-17] VITALS: Ht 165.1 cm; Wt 136.1 kg
[~2019-11-17 16:15] MED LIST changes: +ASPIRIN325 PO; +DOCUSATE SODIU250 MG PO; +DULOXETINE HCL60 MG PO; +METHADONE HCL 110 M1 PO; +REMERON15 M2 PO
[2019-11-18] MEDS ORDERED: CEFUROXIME500 MG PO (12:53)
[2019-11-18] MEDS ORDERED: CLOPIDOGREL75 MG PO (12:53)
[2019-11-18 16:28] VITALS: BP 90/53
--- NOTE | 2019-11-18 18:41 | NUR ---
RECEIVED REPORT FROM [facility] NURSE. PT ADMITED FOR RECENT SUBACUTE CVA. 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 CURRENTLY HAS DYSPHAGIA. ON NECTAR THICKEN LIQUID. ASSUMED CARE OF PT AT 1600 WHEN PT BROUGHT TO UNIT BY NURSING STAFF. 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 LIVES HOME WITH HER SON. HAS HX OF DEPRESSION AFTER THE OF HER DAUGHER AT AGE 44 AND HER IN 2009. MEDICATIONS FAXED TO PHARMACY, CONSENTS SIGNED, ADMISSION ASSESSMENT COMPLETED, ADMISSION EDUCATION PROVIDED VITAL SIGNS AND WEIGHT OBTAINED. PT IS A&OX4 ABLE TO VOICE HER NEEDS. REASSESMENT PER CHART. HR REGULAR, LUNG SOUNDS CLEAR, DIMINISHED ON BASES. HAS HX OF SMOKING. LAST TIME OF SMOKE WAS 5 DAYS AGO. BOWEL SOUNDS ACTIVE. LAST BM WAS YESTERDAY. DENIES PAIN, SOB, N/V. FALL PRECUTIONS IN PLACE AND NURSING WILL CONTINUE TO MONITOR. PT LAST FALL WAS NOVEMBER AND HAS HX OF ORTHOSTATIC B/P. WILL GIVE REPORT TO NIGHT NURSE TO CONTINUE TO MONITOR.
[2019-11-18 20:22] VITALS: BP 97/59
--- NOTE | 2019-11-19 03:03 | NUR ---
APPRECIATES NECTAR THICK TEA. UP TO TOILET AT LEAST OFTEN EVERY 2 HOURS, NOT QUITE OFTEN EVERY HOUR SHE PUTS IT. WEARING BRIEF FOR USI. GAIT BELT FOR STANDBY ASSIST AND TOUCH ASSIST WHILE ROTATING TO GRAB BAR IN BATHROOM.
[2019-11-19 07:25] VITALS: BP 103/58
[2019-11-19 08:22] LABS: HEMATOCRIT 34.4 % (37.0-47.0); HEMOGLOBIN 11.3 gm/dL (12.0-15.0); MCHC 32.7 g/dL (28.0-37.0); MCV 88.7 fL (80.0-100.0); RBC 3.88 mil/uL (4.20-5.00); RDW 15.9 % (10.5-14.5); WBC 7.9 thou/uL (4.0-11.0)
[2019-11-19 08:28] LABS: CALCIUM 9.1 mg/dL (8.5-10.1); CREATININE 0.8 mg/dL (0.6-1.0)
--- NOTE | 2019-11-19 14:26 | NUR ---
ASSUMED CARES AT 0700. PT AWAKE, ALERT AND ORIENTED*4. C/O HEADACHE, TYLENOL ADMINISTERED NEEDED. VITALS ARE STABLE. PT UP WITH 1 SBA, GB AND TOLERATED WELL. RESTING IN BED IN THE AFTERNOON. Q1H VISUAL CHECKS. CALL LIGHT WITHIN REACH. FALL PRECAUTIONS IN PLACE
[2019-11-19 19:43] VITALS: BP 120/47
--- NOTE | 2019-11-20 03:43 | NUR ---
ASSUMED CARE AROUND 1900, PT A&O X 4, NO ACUTE DISTRESS OVERNIGHT. VSS, O2 ON RA. PT PAIN TO BLE CONTROLLED WITH SALLIE METHADONE. MEDS GIVEN PER ORDERS, TOLERATED WELL. CONTINENT OF B&B, USES BR, BM 11/17/19. PT RESTING, CALL LIGHT WITHIN REACH, WILL CONTINUE TO MONITOR PER POC.
[2019-11-20 09:31] VITALS: BP 102/56
--- NOTE | 2019-11-20 14:30 | NUR ---
chart review. cm visited with pt at bedside, cm cont to wear ppe mask on during visit and she stated " what's with the mask and gloves match"/ellen. cm not wearing any gloves. she is a & o self, place, year and is able to make needs know. " live in house, son lives with me. 4 steps to enter in front and a ramp to enter from backyard. independent when feeling ok. has a cane. has support from her son and other family members. [facility] in past. primary dr is dany. did not know i was going to get that dx"/ellen. noted during visit, changes subject from grandkids to 5 wishes and the to home improvement. will cont following as needed for dc needs.
--- NOTE | 2019-11-20 16:05 | NUR ---
PT ALERT AND ORIENTED TIMES THREE WITH PERIODS OF CONFUSION. VSS. PT DENEIS PAIN/SOA. PT TOLERATES MEDS AND MEALS. PT WORKED WELL WITH PT/OT, AND UP FOR MOST OF THE SHIFT. PT WILL CONTINUE TO MONITOR.
[2019-11-20 19:15] VITALS: BP 126/81
[2019-11-20 20:52] LABS: HEMATOCRIT 30.7 % (37.0-47.0); HEMOGLOBIN 10.5 gm/dL (12.0-15.0); MCH 30.1 pg (26.0-34.0); MCHC 34.1 g/dL (28.0-37.0); MCV 88.3 fL (80.0-100.0); PLATELET COUNT 206 thou/uL (150-400); RBC 3.48 mil/uL (4.20-5.00); RDW 15.5 % (10.5-14.5); WBC 6.8 thou/uL (4.0-11.0)
[2019-11-20 20:58] LABS: CALCIUM 8.7 mg/dL (8.5-10.1); CREATININE 0.8 mg/dL (0.6-1.0)
--- NOTE | 2019-11-20 21:35 | HC ---
[facility] [place] [address] CONSULTATION Name: NAYELY ACE Room #: 509-P ADM IN M.R.#: [id number] Admission: 11/18/19 Attend Phys: Yash William MD Discharge: Date of : 47 Report #: [id number] THIS REPORT FOR: cc: Nayan Ocampo MD [facility] Nayan Verma MD [facility] ~ CC: Yash Schaefer, [facility] REASON FOR CONSULTATION: History of lymphoma. HISTORY OF PRESENT ILLNESS: The patient is a very pleasant 74-year-old female who was admitted to [facility] [facility] about a week or so ago with hyponatremia and mental status changes. As part of her evaluation, we note an also a fever. 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 She had received 6 cycles of chemotherapy and I think also radiation therapy and rituximab, maybe radiation therapy not clear on that and had done well. Her last visit with Dr. Schaefer was in June. She thought she was in remission at that time. She had a CAT scan on admission here that does not appear to show lymphadenopathy. Requested for comparison of CAT scan has been ordered, but not yet complete. This will be reordered/reminded a radiologist that this has not yet been done. The patient is currently up in rehabilitation. On the inpatient floor, she had been noticed to have some left facial droop and some slight pocketing of food and drooling. She reports this is still present when she gets tired. She is working with speech therapy on rehabilitation. She denies fevers, chills, cough, sore throat, mouth sores, lymph node enlargement. Does have some mild constipation since she has been here. No diarrhea, no blood in her urine or stool. No skin rash. 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 This is from a diagnosis of about, I believe, 01/2018. She also has a history of hyperlipidemia, depression, hypertension, COPD. SOCIAL HISTORY: She had worked as a nurse in [place] and recently had worked at [employer] as a nurse about 5 years ago, was smoking up until admission. Has a about 3 years ago and daughter several years ago. She has 5 dogs at home. MEDICATIONS: Medications at this time in the hospital currently include [facility] [address] [place] [address] CONSULTATION Name: NAYELY ACE Room #: 509-P [facility] IN M.R.#: [id number] Admission: 11/18/19 Attend Phys: Yash William MD Discharge: Date of : 47 Report #: [id number] docusate 250 mg daily, multivitamin with iron daily, clopidogrel 75 daily, mirtazapine 15 at bedtime, methadone 20 mg b.i.d., duloxetine 60 mg at bedtime, aspirin 325 mg daily, Xanax 0.5 mg q. 8 hours p.r.n., bisacodyl and sennosides and magnesium hydroxide, Tylenol, and also cefuroxime, which she is completing x 10 doses and was begun on 11/18/2019. PHYSICAL EXAMINATION: GENERAL: The patient appears her stated age. VITAL SIGNS: Height is 5 feet 5 inches, 165.1 cm; weight 120 pounds or 54.4 kilograms. Blood pressure is 120/47, O2 sat 94%, respirations 16, pulse 81, afebrile at 97.9. NEUROLOGIC: The patient still has very minimal left facial droop at the corner of her mouth. HEENT: Pupils are equal and round. Oropharynx is normal with soft palate, lips. Tongue extends left and right normally. LYMPHATICS: No enlarged lymph nodes in the supraclavicular, cervical, axillary or inguinal region. ABDOMEN: Soft, no masses. EXTREMITIES: Without clubbing, cyanosis or edema. LABORATORY DATA: Recent lab includes a BUN of 11, creatinine of 0.8, sodium at 137. Transaminases have been normal. Albumin was low at 2.7. Coags had been normal. White count 7.9, hemoglobin 11.3, MCV 88.7, RDW of 15.9, platelets 219. Differential nonacute with few extra monocytes. Sed rate of 30. ANC 3700, 25-hydroxy vitamin D on the low end at 29. TSH 0.786. Vitamin B12 of 400. UA without blood. ASSESSMENT AND PLAN: 1. History of diffuse large germinal B-cell lymphoma, currently thought to be in remission. We will once again reorder CT comparison. 2. Cerebrovascular accident with focal facial droop and mild dysphagia and MRI changes, now on aspirin and clopidogrel, rehabilitation efforts per Dr. William's group. 3. Hypertension. Meds per others. 4. Constipation. Meds per others. 5. Hyperlipidemia, statins per others, will be available for questions. We will also follow up on CAT scan for comparison. <ELECTRONICALLY SIGNED> By: Arturo Fierro MD 11/20/19 2419 Arturo Fierro MD /foster
[2019-11-20 21:49] LABS: ABSOLUTE NEUTROPHILS 3.8 thou/uL (1.4-8.2)
[2019-11-20 21:50] LABS: ANISOCYTOSIS 1+
--- NOTE | 2019-11-21 01:05 | NUR ---
PT ALERT AND ORIENTED X 1, CONFUSED. IMPULSIVE AT TIMES. AMB TO BR WITH GAIT BELT AND ASSIST X 1 WITHOUT DIFFICULTY. [employer] SOFTWARE DEVELOPMENT ENGINEER EQUAL AND STRONG. LE STRENGTH EQUAL. PT HAVING HALLUCINATIONS. DR. GALLEGOS IN LAST EVENING AND MADE AWARE OF PT'S CONDITION. ORDERS NOTED. LAB RESULTS NOTED. BED ALARM ON FOR SAFETY. PT APPEARS TO BE SLEEPING ON HOURLY ROUNDS.
[2019-11-21 07:45] VITALS: BP 96/58
--- NOTE | 2019-11-21 14:48 | NUR ---
team meeting, recommendation: dc 18th initial supervision, no driving, life alert. hh (pt, ot, st, nursing, ) possible will need fww. going to start use of flow proval 5cc cup with thin liquids.
--- NOTE | 2019-11-21 18:11 | NUR ---
ASSUMED CARE AT 0700. PATIENT IS ALERT AND ORIENTED TO SELF. PATIENT SETHI'S, PATIENT IS UP WITH ASSIST OF ONE WITH HER CANE. DOWN TO RADIOLOGY FOR VIDEO SWALLOW. PATIENT CONTINUES ON NECTAR THICK LIQUIDS. LUNGS ARE COARSE AND DEMINISHED. PATIENT CONTINUES ON ABT FOR RIGHT LOWER LOBE PNEUMONIA. DR. GALLEGOS NOTIFIED OF ELEV HR, AND LOW BP WITH ACTIVITY. HIS RECCOMENDATION. INCREASE HER FLUID INTAKE AND GET UP SLOWLY WHEN MAKING CHANGES IN MOVEMENT. XANAX GIVEN FOR ANXIETY. WILL CONTINUE TO MONITER.
[2019-11-21 19:35] VITALS: BP 90/54
[2019-11-22] VITALS (7 sets, daily range): BP systolic 98–213; BP diastolic 51–187
--- NOTE | 2019-11-22 00:56 | NUR ---
PINK SACK OF CLOTHES FROM HOME INCLUDES 3 SHIRTS, SHOES, 2 SHORTS, JEANS, 4 UNDERWEAR, AND BRA
--- NOTE | 2019-11-22 01:58 | NUR ---
CALLING FOR STANDBY ASSIST UP TO TOILET, BED ALARM RINGING A FEW TIMES WHEN PT LEANS FORWARD WHILE SHE IS SITTING AT EDGE OF BED. DRINKING NECTAR THICK TEA AND NECTAR THICK WATER
--- NOTE | 2019-11-22 07:43 | NUR ---
Nutrition: Admitted to rehab s/p multiple strokes. Assess due to BMI > 40, currently 50 kg/m2 at weight of 300#. Will defer weight loss education at this time given pt current condition - not deemed appropriate. Pt's level of orientation varies, recently documented as oriented to self only. Periods of confusion w/ hallucinations per nursing notes. Limited to nectar thick liquids, but allowed a regular diet. Tolerating meals well per RN. Ate 70-100% of all meals yesterday. Will reassess if education more appropriate at time of LOS.
--- NOTE | 2019-11-22 09:55 | NUR ---
FAXED REFERRAL TO [facility] SPOKE WITH MARÍA IN INTAKE SHE RECEIVED REFERRAL AND WILL ACCEPT AT [place].
--- NOTE | 2019-11-22 10:29 | NUR ---
ASSUMED CARE AT 0700. PATIENT IS ALERT AND ORIENTED TO PERSON AND TIME. PATIENT SETHI'S, PATIENT IS UP WITH ASSIST OF 1 STAFF AND GAIT BELT TO THE BATHROOM. PATIENT LUNGS ARE DEMINISHED IN THE RIGHT BASE. PATIENT CONTINUES TO ORAL ABT. PATIENT IS TOLERATING ABT'S WITHOUT ADVERSE AFFECTS. PATIENT IS ENCOURAGED TO INCREASE HER FLUID INTAKE. PLAN CXR TODAY. FALL AND SAFETY PROTOCOLS IN PLACE. C/O FOOT PAIN. MEDICATED WITH SCED PAIN MED. CONTINUES TO PROGRESS SLOWLY TOWARDS D/C GOALS. WILL CONTINUE TO MONITER.
--- NOTE | 2019-11-23 00:18 | NUR ---
PT ALERT AND ORIENTED X 3. AMB TO BR WITH WALKER AND ASSIST X 1 WITHOUT DIFFICULTY. PT DENIES PAIN OR DISCOMFORT. BED ALARM ON FOR SAFETY. PT APPEARS TO BE SLEEPING ON HOURLY ROUNDS.
[2019-11-23 11:27] LABS: URINE BILIRUBIN NEGATIVE (Negative); URINE BLOOD NEGATIVE (Negative); URINE CLARITY CLEAR; URINE COLOR YELLOW; URINE GLUCOSE-RANDOM* NEGATIVE (Negative); URINE KETONES NEGATIVE (Negative); URINE LEUKOCYTES-REFLEX NEGATIVE (Negative); URINE NITRITE-REFLEX NEGATIVE (Negative); URINE PROTEIN (DIPSTICK) NEGATIVE (Negative); URINE UROBILINOGEN 0.2 E.U./dl (0.2-1.0)
[2019-11-23 11:28] VITALS: BP 125/78
[2019-11-23 11:31] LABS: HEMATOCRIT 32.2 % (37.0-47.0); HEMOGLOBIN 10.7 gm/dL (12.0-15.0); MCH 29.3 pg (26.0-34.0); MCHC 33.1 g/dL (28.0-37.0); MCV 88.5 fL (80.0-100.0); RBC 3.64 mil/uL (4.20-5.00); RDW 16.3 % (10.5-14.5)
[2019-11-23 11:46] LABS: ALBUMIN 2.8 g/dL (3.4-5.0); CALCIUM 8.9 mg/dL (8.5-10.1); CREATININE 0.6 mg/dL (0.6-1.0); POTASSIUM 4.4 mmol/L (3.5-5.1); TOTAL BILIRUBIN 0.6 mg/dL (0.2-1.0)
--- NOTE | 2019-11-23 12:12 | NUR ---
ASSUMED CARE AROUND 0700, PT APPEARED CONFUSED, ORIENTED TO PERSON BUT FLAT AFFECT ON FACE. THIS WAS NOTED TO BE AN ACUTE CHANGE FROM PT PREVIOUS ORIENTATION. NOTIFIED TERRANCE HUI WHO ASSESSED PT AT BEDSIDE, ORDERS GIVEN FOR CT OF HEAD W/O CONTRAST, U/A AND LABS. PT ALSO HAD EMESIS X 2, YELLOW-GREEN, GIVEN PRN ZOFRAN WITH RELIEF. PT WAS ABLE TO TOLERATE AM MEDS. THERAPIES ON HOLD. DR. CELESTE NOTIFIED OF ACUTE CHANGES AND RESULTS OF CT SCAN, STAT MRI OF BRAIN ORDERED. PRIMARY PROVIDER DR. GALLGEOS PAGED, AWAITING CALL BACK. PT STABLE STILL CONFUSED, WILL CONTINUE TO MONITOR PER POC.
--- NOTE | 2019-11-23 15:47 | NUR ---
STAT MRI ORDERED BY DR. CELESTE, NOTIFIED OF RESULTS, NO NEW ORDERS GIVEN BUT WILL ASSESS PT AT BEDSIDE. DR. GALLEGOS ALSO NOTIFIED OF RESULTS, WILL ASSESS PT AT BEDSIDE. PT RESTING, NO N/V REPORTED, WILL CONTINUE TO MONITOR PER POC.
[2019-11-23 19:30] VITALS: BP 118/68
[2019-11-23 20:25] VITALS: BP 96/60
--- NOTE | 2019-11-23 22:17 | NUR ---
1900 ASSUMED CARE OF PT AFTER BEDSIDE REPORT, PT ORIENTED ONLY TO PERSON, TRYING TO CLIMB OUT OF BED MENTIONING SHE NEED TO GO FIND HER SON, REORIENTED EASILY AND LAID BACK DOWN, PERRLA ORIENTED TO PERSON AND PLACE BUT FORGETFUL OF PLACE. HAND RN TELEHEALTH EQUAL BILATERALLY, FOOT PUSHES AND PULLS EQUAL BILATERALLY, PT FOLLOWING COMMANDS AND ANSWERING MOST QUESTIONS APPROPRIATELY, AFFECT APPROPRIATE TO MOOD, SKIN WARM AND DRY, LUNGS COARSE BUT CLEAR WITH COUGH, PT STATES SHE WANTS A CIGARRETTE, WHEN ASKED IF SHE WANTS ME TO CALL AND ASK FOR NICOTINE PATCH SHE STATES SHE IS ALLERGIC TO THE PATCHES AND GUM. FALL PRECAUTIONS IN PLACE WILL CONTINUE TO MONITOR
[2019-11-23 23:00] VITALS: BP 126/68
[2019-11-23 23:44] VITALS: BP 120/70
[2019-11-24] VITALS: BP 120/70
--- NOTE | 2019-11-24 02:46 | NUR ---
Pt's primary nurse noticed a change in the patient's mental status. The patient was confused, agitated, and aphasic. CHANGE CONTROL MANAGER called, see CHANGE CONTROL MANAGER flowsheet.
[2019-11-24 03:11] LABS: CALCIUM 8.9 mg/dL (8.5-10.1); CREATININE 0.7 mg/dL (0.6-1.0); POTASSIUM 4.9 mmol/L (3.5-5.1)
[2019-11-24 03:54] LABS: HEMATOCRIT 32.3 % (37.0-47.0); HEMOGLOBIN 10.6 gm/dL (12.0-15.0); MCH 29.2 pg (26.0-34.0); MCHC 32.7 g/dL (28.0-37.0); MCV 89.2 fL (80.0-100.0); RBC 3.63 mil/uL (4.20-5.00); RDW 16.7 % (10.5-14.5); WBC 7.8 thou/uL (4.0-11.0)
[2019-11-24 04:10] LABS: APTT 25.3 Seconds (24.5-32.8); PROTIME 10.3 Seconds (9.3-11.4)
[2019-11-24 04:19] LABS: CALCIUM 8.9 mg/dL (8.5-10.1); CREATININE 0.7 mg/dL (0.6-1.0); POTASSIUM 5.3 mmol/L (3.5-5.1)
[2019-11-24 04:25] LABS: ALBUMIN 2.9 g/dL (3.4-5.0); MAGNESIUM 1.9 mg/dL (1.8-2.4); TOTAL BILIRUBIN 0.6 mg/dL (0.2-1.0); TOTAL PROTEIN 5.8 g/dL (6.4-8.2)
[2019-11-24 05:30] VITALS: BP 97/62
[2019-11-24 07:33] VITALS: BP 102/54
--- NOTE | 2019-11-24 08:01 | EKG ---
[facility] [address] [place] [address] ELECTROCARDIOGRAM REPORT Name: NAYELY ACE Room #: 509- ADM IN M.R.#: [id number] Admission: 11/18/19 Attend Phys: Yash William MD Discharge: Date of : 47 Report #: [id number] THIS REPORT FOR: cc: Nayan Ocampo MD [facility] Nayna Verma MD [facility] Jackie,Merrick Alvarez MD ~ THIS REPORT FOR: //name// [facility] Test Date: 2019-11-24 Test Time: 02:20:35 Pat Name: NAYELY ACE Department: Room: 509 P Gender: F Grey Roll Worker: MPARK : [id number] Requested By: Nayan Ocampo Order Number: [id number] MD: Merrick Mejia Measurements Intervals [place] Rate: 117 P: 97 CA: 154 QRS: 104 QRSD: 74 T: 120 QT: 315 QTc: 440 Interpretive Statements Sinus tachycardia Probable left atrial enlargement Anteroseptal infarct, age indeterminate Lateral leads are also involved Compared to ECG 11/13/2019 11:33:37 Myocardial infarct finding now present Sinus rhythm no longer present Left-axis deviation no longer present Electronically Signed On 11-24-2019 8:00:12 CDT by Merrick Mejia [email or web address] <ELECTRONICALLY SIGNED> By: Merrick Mejia MD 11/24/19799 9 9 Merrick Mejia MD /EPI
[2019-11-24 09:00] VITALS: BP 102/54
--- NOTE | 2019-11-24 15:32 | NUR ---
ASSUMED CARES AT 0700. PT ORIENTED TO SELF ONLY, CONFUSED. UNABLE TO CONCENTRATE ON 1 THING. VISION IMPAIRMENT NOTED ON THE LEFT PERIPHERAL. JERKY MOTIONS OF DEA HANDS, PT SPILLING FOOD AND DRINKS. NEUROLOGY AND PSYCH CONSULTED, BOTH PHYSICIANS HERE TO SEE PT, ORDERS RECEIVED. VITALS STABLE. PT C/O HEADACHE, METHADONE ADMINISTERED PER ORDER, ACETAMINOPHEN ADMINISTERED NEEDED. PT UP WITH 1 MIN ASSIST, GB AND WALKER. PARTICIPATED IN ALL THERAPIES. FALL PRECAUTIONS IN PLACE. FREQ. VISUAL CHECKS, ROOM BY NURSE'S DESK.
[2019-11-24 15:48] LABS: FOLIC ACID 24.5 ng/mL (8.6-58.9)
[2019-11-24 17:42] LABS: AMP/METHAMP Negative (Negative); BARBITURATES Negative (Negative); BENZODIAZEPINES POSITIVE (Negative); COCAINE Negative (Negative); METHADONE POSITIVE (Negative); OPIATES Negative (Negative); PCP Negative (Negative)
[2019-11-24 20:00] VITALS: BP 106/58
--- NOTE | 2019-11-25 02:21 | NUR ---
assumed care at approx 1900 evening 11/23. pt sitting up in w/c at change of shift. pt confused, forgetful, impulsive, restless, and anxious. pt with lap belt on trying to undo it. chair alarm also on. pt brought to nurses station for closer supervision. pt continued to try and pull on belt, IV site, koban. pt given xanax prn and hs meds as ordered. pt assisted into bed and continued to be impulsive. pt finally seemed to settle down approx 0200 in am. IVF infusing at present. bed alarm on and call light in reach. will continue to monitor.
[2019-11-25 05:54] LABS: CALCIUM 8.7 mg/dL (8.5-10.1); CREATININE 0.6 mg/dL (0.6-1.0); POTASSIUM 4.3 mmol/L (3.5-5.1)
[2019-11-25 08:10] VITALS: BP 108/80
--- NOTE | 2019-11-25 14:01 | NUR ---
ASSUMED CARES AT 0700. PT ASLEEP, DROWSY, ORIENTED TO PERSON ONLY. CONFUSED. CONTINUES TO HAVE A FLAT AFFECT AND AT TIMES HAS BLANK STARES AND STARTLES WHEN SPOKEN TO OR TOUCHED. C/O HEADACHE, METHADONE ADMINISTERED ORDERED. PT SLEEPING AFTER THERAPIES AND DURING MEAL TIMES. SUPERVISION PROVIDED WITH MEALS, PT ATE 50-60% OF HER MEALS. REMAINS ON NECTAR THICK FLUIDS AND TOLERATED WELL. SKIN TEARS ON LEFT ELBOW AND WRIST CLEANED AND DRESSING CHANGED. UP WITH 1 MIN ASSIST, GURPREET NEGRETE. Q1H VISUAL CHECKS. CALL LIGHT WITHIN REACH. FALL PRECAUTIONS IN PLACE
[2019-11-25 19:09] VITALS: BP 108/80
[2019-11-25 19:29] VITALS: BP 122/62
--- NOTE | 2019-11-26 01:40 | NUR ---
ASSESSMENT: PT REMAIN ALERT AND ORIENT TIMES TWO. CAN BE IMPULSIVE AND DOES NOT FOLLOW SIMPLE REQUEST AT TIMES. UP TO BR WITH GB AND SBA. NO BM THIS SHIFT. VSS, AFEBRILE. ALPRAZOLAM GIVEN EARLY IN THE SHIFT. PT IS SLEEPING NOW. VSS, AFEBRILE. GARBLE SPEECH AT TIMES, VERY DIFFICULT TO COMPREHEND WHAT PT IS SAYING. SLOW PROGRESS TOWARDS DC GOALS, WILL CONTINUE TO MONITOR.
[2019-11-26 08:00] VITALS: BP 90/57
[2019-11-26 10:00] VITALS: BP 106/58
--- NOTE | 2019-11-26 13:28 | HC ---
[facility] [place] [address] CONSULTATION Name: NAYELY ACE Room #: 505-P [facility] IN M.R.#: [id number] Admission: 11/18/19 Attend Phys: Yash William MD Discharge: Date of : 46 Report #: [id number] THIS REPORT FOR: cc: Nayan Ocampo MD, FAAFP, FACEP, Douglas MD FAA Bruce Ahumada PhD ~ CC: Yash Ocampo DATE OF SERVICE: 11/25/2019 NEUROBEHAVIORAL STATUS EXAM AGE: 74. ATTENDING PHYSICIAN: Yash William MD DRILL RIG OPERATOR HELPER: Bruce Molina, PhD CLINICAL PRESENTATION: The patient is a 74-year-old female admitted to the [facility] with mental status changes. Her presentation included elevated sodium and left facial droop. An MRI revealed multiple strokes in multiple cortical areas including the right posterior frontoparietal and left parietal occipital areas. Her medical history includes non-Hodgkin's lymphoma, hypertension, COPD and depression. She also has a history of tobacco abuse. Her assessment on admission to the rehabilitation unit included multiple strokes in the right posterior frontal, right parietal and left parietal occipital areas, functional mobility deficits, problems with ADLs, swallowing and word finding deficits, dysphagia, gait imbalance, history of tobacco abuse, non-Hodgkin's lymphoma, GERD, hypertension, and history of depression. A complete description of her medical condition and history along with medications can be found in her medical record. Neuropsychological consultation was requested to provide assistance in the assessment of cognitive and emotional status and to provide recommendations and services. Prior to this most recent admission, she was living independently with her son. She had 4 children. Two children are . 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 TECHNIQUES UTILIZED: Clinical interview, review of medical records, staff consultation and behavioral observation, mini mental status exam 2 standard versions and clock drawing. EXAMINATION FINDINGS: The patient was intermittently drowsy and alert during the assessment. She frequently would gaze off during the assessment and [facility] [address] [place] [address] CONSULTATION Name: NAYELY ACE Room #: 505-[facility] IN ..#: [id number] Admission: 11/18/19 Attend Phys: Yash William MD Discharge: Date of : 46 Report #: [id number] required redirection to task. Periods of altered attention/concentration were noted throughout the assessment in which she became unresponsive. Variability in sustained arousal was frequent. She describes her symptoms to include memory, word finding and sleep disturbance. She also reports subjective anxiety and depression. Her affect was flat and as indicated frequently became unresponsive with an extended delaye in processing speed. Performance on the MMSE 2 brief version was extremely low with a raw score of 10 of 16. Initial registration of information was impaired and required repetition. The patient was not oriented to time. Frequent redirection was necessary to maintain attention and alertness during assessment. Her score on the MMSE 2 standard version was extremely low with a raw score of 16 of 30. She was 1/5 for serial sevens, 2/2 for naming, 1/1 for repetition. She shows variability in comprehension. The patient was unable to read and follow single command. She was able to respond to auditory/verbal commands but unable to comprehend written commands. The patient was unable to write a sentence or copy a simple geometric design. The patient was unable to draw a clock, place the numbers or set the hands at a designated time. Clock drawing suggests a left neglect. Severe visual spatial disorganization and perseveration is noted. The patient is presenting with severe impairment in arousal and sustained alertness. Impairment in orientation, sustained attention and concentration, visual spatial organization and executive functioning. The extent of cognitive deficits is severe at this time. The waxing and waning in her level of alertness and delayed response suggests delirium. Seizure activity should be ruled out. In the absence of a seizure disorder, this type of presentation can suggest a Lewy Body type of neurodegenerative disorder. DIAGNOSTIC IMPRESSION: 1. Delirium, acute, hypoactive. 2. 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 3. Depressive disorder by history. RECOMMENDATIONS: [address] [address] CONSULTATION Name: NAYELY ACE Room #: 505-P [facility] IN M.R.#: [id number] Admission: 11/18/19 Attend Phys: Yash William MD Discharge: Date of : 46 Report #: [id number] Neurology consultation to rule out seizure disorder. As indicated, in the absence of a seizure disorder, this type of presentation can suggest a Lewy Body type of neurodegenerative disoder. Additionally, she is presenting with a vascular contribution to neurocognitive disorder. Patient will require assistance in the managment of medication, finances and nutrition. Frequent orientation with specific directions to maintain level of alertness and attention to task. Followup neuropsychological assessment will be of benefit following resolution of the delirium to clarify the severity of cognitive disorder. Thank you very much for allowing me to provide the consultation on this patient. <ELECTRONICALLY SIGNED> By: Bruce Molina, PhD 11/26/19 1328 1536 [id number] Bruce Molina, PhD /nt
--- NOTE | 2019-11-26 14:30 | NUR ---
ASSUMED CARES AT 0700. PT SLEEPY, ORIENTED TO PERSON ONLY. ABLE TO REMEMBER MEDICATION AND ASKS FOR THEM BY NAME. CONTINUES TO HAVE A FLAT AFFECT AND BLANK STARES. DENIES PAIN. BP LOW THIS MORNING (SBP 90'S), PUSHING FLUIDS. ASPIRATION PRECAUTIONS MAINTAINED WITH MEALS AND DRINKS. REMAINS ON NECTAR THICK FLUIDS AND TOLERATES WELL. REMAINS IMPULSIVE, BED/CHAIR ALARM IN PLACE AT ALL TIMES. FREQ. VISUAL CHECKS. SKIN TEARS ON LEFT ELBOW CLEANED AND DRESSING CHANGED. IV ON LEFT FOREARM REMAINS INTACT AND PATENT. PT UP WITH 1 MIN ASSIST, GURPREET, UNSTEADY ON HER FEET. CALL LIGHT WITHIN REACH. FALL PRECAUTIONS IN PLACE
[2019-11-26 20:01] VITALS: BP 110/69
--- NOTE | 2019-11-27 00:15 | NUR ---
PT ALERT AND ORIENTED X 3 AT TIMES, CONFUSED AT TIMES. IMPULSIVE. AMB TO BR WITH GAIT BELT AND ASSIST X 1 WITHOUT DIFFICULTY. VERY UNSTEADY GAIT. PT INCONT X 1 SO FAR TONIGHT. PT DENIES PAIN OR DISCOMFORT. BED ALARM ON FOR SAFETY. PT CHECKED ON MORE FREQUENTLY THAN HOURLY ROUNDS.
[2019-11-27 08:40] VITALS: BP 84/55
[2019-11-27 09:00] VITALS: BP 105/63
--- NOTE | 2019-11-27 16:50 | NUR ---
ASSUMED CARE OF PT AT 0700. PT IS A&OX1. BLOOD PRESSURE REPORTED 81/55 THIS AM, WAS RECHECKED AND WAS 105/63, PT TACHYCARDIC WITH HR >110. PT UNABLE TO PARTICIPATE IN ALL THERAPIES DUE TO TACHYCARDIA. PT ENCOURAGED TO DRINK PO FLUIDS. PT UP FOR ALL MEALS WITH 100% SUPERVISION. EEG ORDERED, RESULTS PENDING. PT INCREASINGLY CONFUSED, AGITATED, AND IMPULSIVE. PT IN W/C WITH FREQUENT VISUAL CHECKS, PT MAKING ATTEMTPS TO ELOPE AND WANDER INTO OTHER PT ROOMS. DRESSING TO LEFT ELBOW CHANGED PER ORDERS. FALL PRECAUTIONS IN PLACE AND NURSING WILL CONTINUE TO MONITOR.
[2019-11-27 19:19] VITALS: BP 101/70
[2019-11-27 22:06] LABS: SYPHILIS AB Non Reactive (Non Reactive)
--- NOTE | 2019-11-28 00:05 | NUR ---
PT ALERT AND ORIENTED X 1, CONFUSED AND IMPULSIVE. UP IN W/C AT NURSES STATION ALL EVENING. TRANSFERRED TO BED AT WITH ASSIST X 1. HAS BEEN AWAKE ALL NIGHT SITTING UP IN BED. PICKING AT BED SHEETS. HAS SET BED ALARM OFF NUMEROUS TIMES WITH LEGS OVER SIDE OF BED BETWEEN SIDERAILS. PT TOOK HS MEDS CRUSHED IN APPLESAUCE WITHOUT DIFFICULTY. LEFT ELBOW DRESSING C/D/I. PT DENIES PAIN OR DISCOMFORT. BED ALARM ON FOR SAFETY. PT CHECKED ON MORE FREQUENTLY THAN HOURLY ROUNDS. PT FOUND WITH PHONE CORD AND CALL LIGHT CORD WRAPPED AROUND HER NECK ONCE DURING THE NIGHT. ITEMS REMOVED FROM PT'S REACH. PT WATCHED CLOSELY DURING THE NIGHT WITH ROOM CLOSE TO NURSES STATION.
[2019-11-28 08:15] VITALS: BP 100/72
--- NOTE | 2019-11-28 10:42 | PLAN ---
[facility] [place] [address] REHAB UNIT PLAN OF CARE Name: NAYELY ACE Room #: 505-P [facility] IN M.R.#: [id number] Admission: 11/18/19 Attend Phys: Yash William MD Discharge: Date of : 46 Report #: [id number] THIS REPORT FOR: //name// CC: Yash Ocampo DATE OF SERVICE: 11/20/2019 PROGRESS NOTE/OVERALL PLAN OF CARE SUBJECTIVE: The patient is a seen back today in followup. She is in no distress. Last recorded temperature 97.9, pulse 81, respirations 16, blood pressure 120/47. The patient is alert. HEENT appeared to be benign. Cranial nerves are grossly intact. Facies are symmetric. No focal neuro changes from admission. Appreciate Dr. Fierro's followup. 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 Note that CT comparison has been ordered. Functionally, the patient is standby assist with basic transfers, ambulated 150 feet contact guard using the cane. We are working on balance issues. She is on a thickened liquid diet. This is a mechanical soft with nectar thickened liquids. ASSESSMENT: 1. Multiple strokes including right posterior frontal, right parietal and left parietal occipital. 2. Functional mobility, ADLs, swallowing deficits and word finding deficits. 3. Dysphagia, on nectar thickened liquids. 4. Decreased gait and balance. 5. History of tobacco abuse. 6. Non-Hodgkin's lymphoma. 7. Gastroesophageal reflux disease. 8. Hypertension. 9. History of depression. PLAN: The overall plan of care is based on the preadmission screen, post-admission physician evaluation and formation and information garnered from therapy assessments. 1. Estimated length of stay is probably at least 7-10 days. 2. Medical prognosis is reasonably good. 3. Anticipated interventions includes the interdisciplinary acute inpatient rehabilitation program. 4. Anticipated functional outcomes would be for the patient to become modified independent with transfers, mobility and ADLs and to improve as far as swallow, so that she can return back to her home setting. 5. Discharge destination would be back where she lives with her son who does work. 6. Expected therapy by discipline includes PT, OT and speech 1 hour per day [address] [address] REHAB UNIT PLAN OF CARE Name: NAYELY ACE Room #: 505-P [facility] IN [facility]#: [id number] Admission: 11/18/19 Attend Phys: Yash William MD Discharge: Date of : 46 Report #: [id number] each 5 days a week throughout the duration of the acute inpatient rehabilitation stay. <ELECTRONICALLY SIGNED> By: Yash William MD 11/28/19 1042 0915 1129 Yash William MD /nt
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
[2019-11-28 11:40] LABS: HEMATOCRIT 34.1 % (37.0-47.0); HEMOGLOBIN 11.3 gm/dL (12.0-15.0); MCH 28.9 pg (26.0-34.0); MCHC 33.3 g/dL (28.0-37.0); RBC 3.92 mil/uL (4.20-5.00); RDW 17.6 % (10.5-14.5); WBC 6.1 thou/uL (4.0-11.0)
[2019-11-28 11:50] LABS: CALCIUM 9.3 mg/dL (8.5-10.1); CREATININE 0.8 mg/dL (0.6-1.0); POTASSIUM 3.5 mmol/L (3.5-5.1)
--- NOTE | 2019-11-28 12:38 | NUR ---
team meeting, recommendation: sitter order per pysch rt confusion. decrease use of cords in room rt. re team with changes in medically condition and changes in dc on 12/07/2019 with eugene lopez (pt, ot ,st and nursing), initial 24hrs chest painting and sealing supervisor. dr gilliam to cont following and neuro. will cont following as needed for dc needs.
--- NOTE | 2019-11-28 15:57 | NUR ---
ASSUMED CARE OF PT AT 0700. PT IS A&OX1. HR ELEVATED AND INCREASES WITH ACTIVITY. PT DENIES PAIN AND PARTICIPATED IN SCHEDULED THERAPIES. PT HAS INCREASED CONFUSION AND HALLUCINATIONS THIS SHIFT. OVERNIGHT PT WAS CONFUSED AND FOUND WITH CORDS WRAPPED AROUND NECK. DR ARIAS ORDERED FOR SITTER TO BE PROVIDED. SITTER WITH PT AT THIS TIME. ORDERS FOR UA TO BE COLLECTED. DRESSING TO LEFT ELBOW CHANGED PER ORDERS. REPORT FROM MACHINE CUTTER THAT PT DID NOT SLEEP OVERNIGHT. NO IV ACCESS AT THIS TIME. FALL PRECAUTIONS IN PLACE. NURSING WILL CONTINUE TO MONITOR.
[2019-11-28 19:00] VITALS: BP 109/65
[2019-11-28 19:20] VITALS: BP 133/69
--- NOTE | 2019-11-29 01:29 | NUR ---
ASSUMED CARE AT APPROX 1900 EVENING 11/27. PT SITTING UP IN W/C AT CHANGE OF SHIFT OUT IN DINING ROOM WITH SITTER WITH PT. PT IMPULSIVE, CONFUSED PICKING AT NOTHING IN THE AIR AND ON HER HANDS. PT RESTLESS, MOVING AROUND UNIT IN HER CHAIR NEEDING CONSTANT SUPERVISION AND REDIRECTION. PT MOSTLY COOPERATIVE WITH STAFF AND SITTER. SITTER ASSISTED PT WITH GETTING INTO PAJAMAS AND PT ARGUMENTATIVE WITH SITTER. PT TOOK HS MEDS WHOLE WITH NO PROBLEMS. SITTER AWARE UA NEEDED. PT APPEARS TO BE SLEEPING SOUNDLY WITH SITTER IN ROOM. CALL LIGHT IN REACH. WILL CONTINUE TO MONITOR.
[2019-11-29 08:00] VITALS: BP 83/51
[2019-11-29 09:35] LABS: URINE BILIRUBIN NEGATIVE (Negative); URINE BLOOD NEGATIVE (Negative); URINE CLARITY CLEAR; URINE COLOR YELLOW; URINE GLUCOSE-RANDOM* NEGATIVE (Negative); URINE KETONES NEGATIVE (Negative); URINE LEUKOCYTES NEGATIVE (Negative); URINE NITRITE NEGATIVE (Negative); URINE PROTEIN (DIPSTICK) NEGATIVE (Negative); URINE SPECIFIC GRAVITY 1.015 (1.005-1.035)
--- NOTE | 2019-11-29 15:26 | NUR ---
PT CARE ASSUMED AT 0700. A&Ox4. PT HAS A SITTER. SHE IS CALM AND RESTING MOST OF THE DAY,. UA WAS COLLECTED. SEE RESULTS. BM TODAY. TAKES MEDS WHOLE WITH APPLESAUSE. UP WITH WHEELCHAIR AND 1 ASSIST. PT CONTINUES TO BE TACHY WITH A HR OF 126 THIS AM, DR. GALLEGOS IS AWARE OF THIS. BP'S ARE ON THE SOFTER SIDE. NECTAR THICK LIQUIDS. FAMILY AT BEDSIDE. FALL PROTOCOL IN PLACE. CALL LIGHT IN REACH. WILL CONTINUE TO MONITOR.
[2019-11-29 20:35] VITALS: BP 119/69
[2019-11-30 08:30] VITALS: BP 110/74
--- NOTE | 2019-11-30 12:49 | NUR ---
Nutrition followup: pt continues on rehab unit following multiple strokes. No new weight. PO intake good, 50-100% of most meals. Continues to require mechanically altered chopped diet with nectar thick liquids. NMES per ST. Low risk.
[2019-11-30 13:53] LABS: CREATININE 0.9 mg/dL (0.6-1.0); POTASSIUM 3.7 mmol/L (3.5-5.1)
[2019-11-30 14:18] LABS: CALCIUM 8.7 mg/dL (8.5-10.1)
--- NOTE | 2019-11-30 14:56 | NUR ---
ASSUMED CARES AT 0700. PT SLEEPY THIS AM, WOKE UP EASILY IN RESPONSE TO HER NAME. ORIENTED TO PERSON AND SITUATION, FORGETFUL. LESS CONFUSED AND RESTLESS TODAY, PARTCIPATING WELL IN THERAPY AND RESPONDING APPROPRIATELY. C/O MILD LEFT SHOULDER PAIN. HR ELEVATED 112, CARDIOLOGY CONTACTED AND ORDERS RECEIVED. ASPIRATION PRECAUTIONS MAINTAINED, PT UP IN THE DINING AREA FOR ALL MEALS. UP WITH 1 SBA, GB AND WALKER. SITTER DC'D. Q1H VISUAL CHECKS. CALL LIGHT WITHIN REACH
[2019-11-30 20:00] VITALS: BP 101/58
--- NOTE | 2019-12-01 04:10 | NUR ---
RECIEVED CARE OF THIS PATIENT AT 1900. PATIENT ALERT AND ORIENTED X4. IV IN LFA PATENT. ON ASP PRECAUTIONS, SAT HOB STRAIGHT UP WITH MEDS. C/O PAIN OF SIX, SCHEDULED MED GIVEN. SLEPT MOST OF THE NIGHT.
[2019-12-01 08:00] VITALS: BP 107/65
--- NOTE | 2019-12-01 14:32 | NUR ---
ASSUMED CARES AT 0700. PT AWAKE, ALERT AND ORIENTED*2-3. HR ELEVATED AT REST AND WITH EXERCISE. ALL OTHER VITALS STABLE. C/O DEA LE PAIN, METHADONE ADMINISTERED ORDERED. ASPIRATION PRECAUTIONS MAINTAINED, PT REMAINS ON NECTAR THICK LIQUIDS AND TOLERATES WELL. SKIN TEAR ON LEFT ELBOW CLEANED AND LEFT LAND AGENT, HEALING. PT UP WITH SBA, GB AND WALKER. NO IMPULSIVENESS OR CONFUSION NOTED. Q1H VISUAL CHECKS. CALL LIGHT WITHIN REACH. FALL PRECAUTIONS IN PLACE
[2019-12-01 19:14] VITALS: BP 96/63
--- NOTE | 2019-12-02 04:30 | NUR ---
ASSUMED CARE AT 1900. PT REPORTED MILD NAUSEA STATING IT WAS R/T TO HER DINNER, DECLINED ANY MEDS OR CRACKERS TO SETTLE STOMACH. DENIED SOB. REPORTED FOOT PAIN WHEN GIVEN METHADONE. SAT UP STRAIGHT IN BED AND TOOK PILLS WITH APPLESAUCE WITHOUT INCIDENT. WOKE UP TO USE BATHROOM, SET OFF BED ALARM BECAUSE SHE FORGOT TO CALL FOR HELP. NO OTHER CONCERNS, WILL CONTINUE TO MONITOR.
[2019-12-02 07:15] VITALS: BP 86/55
[2019-12-02 10:04] VITALS: BP 86/51
--- NOTE | 2019-12-02 11:43 | EKG ---
[facility] [address] [place] [address] ELECTROCARDIOGRAM REPORT Name: NAYELY ACE Room #: 505-P ADM IN M.R.#: [id number] Admission: 11/18/19 Attend Phys: Yash William MD Discharge: Date of : 47 Report #: [id number] THIS REPORT FOR: cc: Nayan Ocampo MD FAA FACE Nayan Ocampo MD FAA FACE Jackie,Merrick Alvarez MD ~ THIS REPORT FOR: //name// [facility] Test Date: 2019-11-30 Test Time: 11:21:40 Pat Name: NAYELY ACE Department: Room: 505 P Gender: F Business Segment Manager: Vannesa OLSON : 1945 Requested By: Pamela Smith Order Number: [id number] MD: Merrick Mejia Measurements Intervals [place] Rate: 100 P: 73 MN: 137 QRS: 73 QRSD: 72 T: 64 QT: 331 QTc: 427 Interpretive Statements Sinus tachycardia Probable left atrial enlargement Anteroseptal infarct, age indeterminate Compared to ECG 11/24/2019 02:20:35 No significant changes Electronically Signed On 12-02-2019 11:42:48 CDT by Merrick Mejia [email or web address] <ELECTRONICALLY SIGNED> By: Merrick Mejia MD 12/02/19 1142 112 1121 Merrick Mejia MD /EPI
--- NOTE | 2019-12-02 11:49 | EKG ---
[facility] [place] [place] [address] ELECTROCARDIOGRAM REPORT Name: NAYELY ACE Room #: 505-P ADM IN M.R.#: [id number] Admission: 11/18/19 Attend Phys: Yash William MD Discharge: Date of : 47 Report #: [id number] THIS REPORT FOR: cc: Nayan Ocampo MD FAA FACE Nayan Ocampo MD FAA FACE Merrick Mejia MD ~ THIS REPORT FOR: //name// [facility] Test Date: 2019-12-01 Test Time: 08:48:54 Pat Name: NAYELY ACE Department: Room: 505 P Gender: F Job Molder: Dorinda CHERRY : 1945 Requested By: Pamela Smith Order Number: [id number] MD: Merrick Mejia Measurements Intervals [place] Rate: 106 P: 76 SC: 136 QRS: 69 QRSD: 70 T: 56 QT: 318 QTc: 423 Interpretive Statements Sinus tachycardia Probable left atrial enlargement Compared to ECG 11/24/2019 02:20:35 Myocardial infarct finding no longer present Electronically Signed On 12-02-2019 11:48:22 CDT by Merrick Mejia [email or web address] <ELECTRONICALLY SIGNED> By: Merrick Mejia MD 12/02/19 1148 [id number] [id number] Merrick Mejia MD /EPI
--- NOTE | 2019-12-02 15:25 | NUR ---
ASSUMED CARE OF PT AT 0700. PT IS A&OX4. BLOOD PRESSURE LOW THIS AM, ORDERS FOR IV FLUIDS, HOLD METOPROLOL. HR WNL. PT DENIES PAIN AT THIS TIME. SKIN TEAR TO ELBOW, DRESSING CHANGE DONE PER ORDER. ENCOURAGING PO FLUIDS. PT RESTING IN BED THIS AM. NURSE SPOKE WITH SON IN AM WITH UPDATE ON PT. IV TO LEFT FOREARM INFILTRATED DURING IV FLUID ADMINISTRATION, NEW IV PLACED IN RIGHT WRIST 22G. FALL PRECAUTIONS IN PLACE AND NURSING WILL CONTINUE TO MONITOR.
[2019-12-02 19:23] VITALS: BP 83/48
[2019-12-03 05:29] LABS: HEMATOCRIT 28.4 % (37.0-47.0); HEMOGLOBIN 9.6 gm/dL (12.0-15.0); MCH 29.9 pg (26.0-34.0); MCHC 33.8 g/dL (28.0-37.0); MCV 88.3 fL (80.0-100.0); RBC 3.21 mil/uL (4.20-5.00); RDW 18.3 % (10.5-14.5)
[2019-12-03 05:36] LABS: CALCIUM 8.4 mg/dL (8.5-10.1); CREATININE 0.7 mg/dL (0.6-1.0); MAGNESIUM 1.6 mg/dL (1.8-2.4); POTASSIUM 4.4 mmol/L (3.5-5.1)
[2019-12-03 06:00] VITALS: BP 98/62
[2019-12-03 06:02] VITALS: BP 154/108
[2019-12-03 06:04] VITALS: BP 98/67
--- NOTE | 2019-12-03 07:08 | NUR ---
PATIENT REPORTS FEELING LIGHT-HEADED AND DIZZY WITH STANDING AND AMBULATION. ORTHOSTATIC BP AND HR RECORDED AT 9545-2440. PATIENT ABLE TO SLEEP MOST OF NIGHT. WOKE PATIENT AT 0600, PATIENT HAD HARD TIME FOLLOWING SIMPLE COMMANDS, REQUESTED 6-7 TIMES FOR PATIENT TO SIT SIDE OF BED WITH FEET DANGLING BEFORE PATIENT ABLE TO COMPLETE TASK. NO ACUTE EVENTS OVERNIGHT.
--- NOTE | 2019-12-03 14:28 | NUR ---
ASSUMED CARE OF PT AT 0700. PT IS A&OX4, BLOOD PRESSURE REMAINS LOW, BUT HAS INCREASED SINCE YESTERDAY, PT DENIES SYMPTOMS. NIGHT NURSE REPORTED ORTHOSTATIC HYPOTENSION, PT ENCOURAGED TO CHANGE POSITIONS SLOWLY AND CALL FOR ASSISTANCE. IV TO RIGHT WRIST IN PLACE AND FLUSHES APPROPRIATLEY. FLUIDS ENCOURAGED. PT HAD BED BATH WITH SETUP ASSISTANCE. STATES THAT SHE IS CONCERNED ABOUT HER BLOOD PRESSURES AT THIS TIME. PT DENIES PAIN AND PARTICIPATED IN SCHEDULED THERAPIES. FALL PRECAUTIONS IN PLACE AND NURSING WILL CONTINUE TO MONITOR.
[2019-12-03 19:25] VITALS: BP 121/84
[2019-12-03 20:32] LABS: AMP/METHAMP Negative (Negative); BARBITURATES Negative (Negative); BENZODIAZEPINES Negative (Negative); COCAINE Negative (Negative); METHADONE POSITIVE (Negative); OPIATES Negative (Negative); PCP Negative (Negative)
--- NOTE | 2019-12-04 02:17 | NUR ---
PATIENT REMAINS CONFUSED AND HARD TO REDIRECT.TRIES TO GET OUT OF BED ALL THE TIME. IMPULSIVE. PATIENT UA SENT TO LAB FOR TOXIC SCREEN. SKIN WARM AND DRY. HAS HAD MULTIPLE STROKES. UP TO BATHROOM WITH WALKER AND GAIT BELT ASSIST OF 1 PERSON. VOIDS SMALL AMOUNTS. NO COMPLAINTS VOICED. WAS GIVEN ZOFRAN DURING THE DAY SHIFT AT SHIFT CHANGE. DENIES ANY ABDOMEN PAIN. VS STABLE 121/84. REPORTED TO ON DAY SHIFT.TAKES MED WHOLE WITH APPLESAUSE. SLEEPING SOME THROUGHTOUT THE NIGHT. SITTER BY HER. ON ROOM AIR. NO SKIN ISSUES NOTED. ENCOURGE TO DRINK FLUIDS. CONT PLAN OF CARE. RIGHT WRIST SL HEALTHY LOOKING AND FLUSHES WELL. REMAINS A FALL RISK. DENIES ANY PAIN.
--- NOTE | 2019-12-04 06:20 | NUR ---
PATIENT AWAKEN AT 0600 TAKEN TO BATHROOM. RFEORIENTATED TO PERSON, PLACE AND TIME. SHE STATED THEM BACK AT RN. IS ALERT X 4 THIS AM. SHE WAS WONDERING MAYBE" SHE WOULD HAVE A UTI. PLACED BACK TO BED. ALARM OF BED ON. REMAINS ALERT X 4.TAKEN MEDS WELL.
[2019-12-04 09:00] VITALS: BP 94/61
--- NOTE | 2019-12-04 10:57 | NUR ---
AT APPROX 0955, PHYSICAL THERAPIST ALERTED NM THAT THIS PATIENT'S NEUROLOGICAL STATUS HAD SIGNIFICANTLY CHANGED DURING THEIR TREATMENT SESSION. PER REPORT BY OCCUPATIONAL THERAPIST EARLIER, PT WAS ABLE TO HAVE A CONVERSATION, AND WAS ABLE TO TELL HER THAT SHE WAS AT [facility]. SHE DESCRIBED SHOES THAT SHE IS MISSING, AND ALTHOUGH FORGETFUL, WAS APPROPRIATE. VSS, AND PT PARTICIPATED IN ALL ACTIVITIES. DURING PHYSICAL THERAPY SESSION FOLLOWING THE OT SESSION, PT SUDDENLY WAS ANXIOUS, AND WAS NO LONGER ABLE TO FORM WORDS, VERBALIZING INCOMPREHENSIBLE SOUNDS, EYES WIDE AND PUPILS VERY SMALL. PT UNABLE TO FOLLOW SIMPLE COMMANDS FOR ACCURATE NEURO CHECKS. NEUROLOGIST WAS ON THE UNIT TO EVALUATE PATIENT, AND DR. HASTINGS ALSO LOOKED AT HER. ORDERS WERE RECEIVED AND PT IS 1:1 WITH STAFF, THEN WILL GO TO MRI. O2 SAT IS 93% AND HEART RATE IS 114. PER THERAPIST REPORT, NO NOTED CHANGED IN BP. PT IS CURRENTLY 1:1 WITH STAFF AND AWAITING TRANSPORT TO MRI FOR FURTHER WORKUP. PER DR. HASTINGS, PT IS NOT SAFE OR APPROPRIATE FOR DISCHARGE, AND IS UNDERGOING MORE TESTING TODAY TO DETERMINE CAUSE OF ACUTE CHANGE IN MENTAL STATUS.
--- NOTE | 2019-12-04 12:16 | NUR ---
pt out of room for mri. dcp 22nd vs 25 with [facility], 24hr initial supervision depending on insurance auth for continued stay.
[2019-12-04 19:14] VITALS: BP 91/54
--- NOTE | 2019-12-04 19:36 | NUR ---
ASSUMED CARE OF PT AT 0700. PT A&OX4 AND VITAL SIGNS STABLE. AT APPROXIMATELY 1000, PT BECAME CONFUSED AND DISORIENTED, PT WAS IMPULSIVE AND AGITAED, REQUIRING SITTER FOR SAFETY. NEUROLOGY ORDERED MRI, BUT DUE TO AGITATION AND CONFUSION RADIOLOGY UNABLE TO OBTAIN MRI, CT SCAN ORDERED INSTEAD. PT GIVEN XANEX PRIOR TO RADIOLOGY TESTS DONE. DR ARIAS NOTIFIED ABOUT CHANGE IN CONDITION. PT SELF-REMOVED IV FROM RIGHT WRIST DURING SHOWER WITH OT. AT APPROXIMATELY 1400, PT BEGAN TO CALM AND BECAME A&OX4 AGAIN, PT EXPRESSED THAT SHE FELT "EHAUSTED" AND WANTED TO GO TO SLEEP. PT ASSISTED TO BED, DIFFICULT TO AROUSE. PT OBSERVED FOR MEALS. FALL PRECAUTIONS IN PLACE AND NURSING WILL CONTINUE TO MONITOR.
--- NOTE | 2019-12-04 23:41 | NUR ---
ASSUMED CARE APPROX 1929 EVENING 11/28. PT LYING IN BED WITH HEAD OF BED ELEVATED, CALM AND COOPERATIVE. SITTER WITH PT THROUGHOUT NIGHT. PT TOOK HS MEDS WITH APPLESAUCE TOLERATING WELL. PT SLEPT WELL. BED ALARM ON, CALL LIGHT IN REACH. SITTER IN ROOM.
--- NOTE | 2019-12-05 01:08 | NUR ---
assumed care at approx 1930 evening 12/03. pt in bed alert and oriented x4, sometimes lying down to rest, at times picking at blankets and into air with hands. pt seems alert and oriented however at times makes confusing statements peter regarding place and time. sitter at bedside. pt took hs meds with yogurt tolerating well. pt appears to be sleeping soundly with bed alarm on. call light in reach and sitter at bedside. will continue to monitor.
[2019-12-05 08:00] VITALS: BP 90/61
[2019-12-05 08:15] VITALS: BP 85/55; BP 90/61
--- NOTE | 2019-12-05 10:00 | NUR ---
ASSUMED CARE OF PT AT 0700. PT A&OX3, FORGETFUL BUT COOPERATIVE. B/P 90/61 HR 82. DENIES PAIN THIS AM. PT WAS UP TO DINNING ROOM. MORNING MEDS GIVEN WITH YOGURT AND ON NECTAR THICKERNER. OFFERED SUPPORTIVE CARE. PT HAD SITTER LAST NIGHT BUT MORE COOPERATIVE THIS AM. DISCUSSED ABOUT CARE PLAN. PT HAD VIDEO SWALLOWING THIS AM. PASSED AND ABLE TO TAKE THIN LIQUID NOW WHEN SHE IS AWAKE AND COOPERATIVE. PT OBSERVED FOR MEALS. FALL PRECAUTIONS IN PLACE AND NURSING WILL CONTINUE TO MONITOR.
--- NOTE | 2019-12-05 13:24 | NUR ---
team meeting, recommendation : mech soft. thin liquid when not confusion then when confused need to go back to [facility]. look for nonverbal s/s of pain. dc thur with 24th assistance rebel lopez, ( pt, ot, st, nursing and sw), fww and possible need to look into other dc option if unable to provide 24hr assistance on 12/07/2019
[2019-12-05 16:45] VITALS: BP 149/119
[2019-12-05 19:05] VITALS: BP 92/63
[2019-12-05 19:10] VITALS: BP 111/56
--- NOTE | 2019-12-06 00:16 | NUR ---
assumed care at approx 1900 evening 12/04. pt sitting up in w/c at nurses station at change of shift. pt alert and oriented, appropriate and cooperative. pt stated she was tired and assisted into her room and into bed approx 1999. pt took hs meds with yogurt tolerating well. pt assist to bathroom to void before hs. pt appears to be sleeping soundly with hourly rounding. bed alarm on and call light in reach. will continue to monitor.
[2019-12-06 08:53] VITALS: BP 88/50
--- NOTE | 2019-12-06 10:59 | NUR ---
ASSUMED CARE OF PT AT 0700. PT A&OX3, FORGETFUL BUT COOPERATIVE.NIGHT RN SAID PT SLEPT WELL LAST NIGHT. B/P 88/50, HR 86. HELD METOPROLOL. MORNING MEDS GIVEN WITH YOGURT AND ON NECTAR THICKERNER.PT WORKED WITH ST AND HAD VITAL STIM, COUGH COUPLE TIMES. ST SUGGESTED TO MONITOR CLOSELY WITH PT'S FOOD AND FLUID INTAKE. OFFERED SUPPORTIVE CARE. DISCUSSED ABOUT CARE PLAN. PT HAD MRI THIS AM. SHOWS BRAIN PERFUSION ISSUE. DR. ARIAS CAME TO SEE AND TALK WITH PT AND NOTICED PT HAS CONFUSION ISSUE. INCREASE DOSE DEPAKOTE AT NIGHT. THIS MILLINERY DEPARTMENT MANAGER CALLED AND DISCUSSED WITH DR. GALLEGOS ABOUT THE CONFUSION YESTERDAY AFTER TOOK PRN METHADONE FOR BACK PAIN. DOCTOR GAVE ORDER TO D/C METHADONE, PRN MIDODRINE 10MG TID FOR B/P LESS THAN 100/70. APPLIED ATIF HOSE. DR. GALLEGOS AWARES THAT PT WILL BE DISCHARGE TOMORROW.FALL PRECAUTIONS IN PLACE AND NURSING WILL CONTINUE TO MONITOR.
--- NOTE | 2019-12-06 11:20 | NUR ---
Nutrition: Seen for early follow up. Pt continues to eat very well overall, despite need for dysphagia diet restrictions, which include Mechanical chopped, no mixed consistencies, no straws. Overall meal average since 11/29 is 69% per the last 18 recorded meals. In the last 2 days, meal average at 76%. While on unit, witnessed pt working on breakfast with POWER CUTTING MACHINE OPERATOR. Breakfast was stopped early due to pt frequently coughing with PO intake. Pt unavailable 2 other attempts, finally resting between therapies on last attempt. Did not disturb. She continues on a MVI w/ iron and has senna laxative ordered. Recent BM 12/04. Planned discharge Thurs 12/05. Given adequate meal averages, will keep as low nutrition risk for now.
[2019-12-06 11:58] VITALS: BP 102/61
--- NOTE | 2019-12-06 12:02 | HC ---
[facility] [place] [address] CONSULTATION Name: NAYELY ACE Room #: 505-P ADM IN M.R.#: [id number] Admission: 11/18/19 Attend Phys: Yash William MD Discharge: Date of : 47 Report #: [id number] THIS REPORT FOR: cc: Nayan Ocampo MD, FAAFP, FACEP, Douglas MD FAAFP FACEP Khosla, Parveen K. MD ~ CC: Yash Ocampo DATE OF SERVICE: 12/05/2019 HISTORY OF PRESENT ILLNESS: A 74-year-old female patient who was seen by me again today. This patient was seen this morning and she was doing much better. She was alert. She was responsive. She did not know what happened yesterday, but she said she is feeling much better. She was not having any particular symptoms. She was willing to get an MRI done. PHYSICAL EXAMINATION: On examination, she was alert. She was responsive. She was following simple commands. She was partly oriented. Cranial nerve examination and neuromuscular examination was symmetrical. Cardiac and respiratory examination was unremarkable. Blood pressure was 90/61, pulse was 82. She was afebrile. Respiration was 18. She had an EEG. I reviewed that. EEG showed some instability, but no clear-cut epileptiform activity was noticed. She also had a CT, which does not show any change. The patient's mentation is fluctuating. 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 That diagnosis is difficult to confirm or rule out because many times the EEG is normal in these circumstances. I discussed options with the patient. The plan is to give a trial with Depakote. She is already on that. She is willing to do the MRI. I have scheduled that. We will look at it and see how she does. She has fluctuated for long time and today she is better, but we need to see how she does in the next few days to get an idea whether they are nonconvulsive seizures or not. Thank you very much for this referral. <ELECTRONICALLY SIGNED> By: Daniel Hay MD 12/06/19 1202 44 00 Daniel Hay MD /nt
--- NOTE | 2019-12-06 12:03 | EEG ---
[facility] [place] [address] ELECTROENCEPHALOGRAM Name: NAYELY ACE Room #: 505-P ADM IN M.R.#: [id number] Admission: 11/18/19 Attend Phys: Yash William MD Discharge: Date of : 47 Report #: [id number] THIS REPORT FOR: //name// CC: Yash Ocampo DATE OF SERVICE: 12/04/2019 This patient is being evaluated for episode of altered mental status. EEG was done by placing the electrode by standard 10-20 system of electrode placement. Both referential and sequential montages were used for recording. Background activity in this patient's EEG is about 7 Hz and 30 microvolts. Photic stimulation is unremarkable. The patient became drowsy that is associated with bilateral slowing. IMPRESSION: This is an abnormal EEG because it is disorganized and poorly formed. No spike and slow wave activity was noticed, but this can predispose the patient for seizure. <ELECTRONICALLY SIGNED> By: Daniel Hay MD 12/06/19 1203 [id number] 1711 Daniel Hay MD /nt
[2019-12-06 13:03] VITALS: BP 133/88
[2019-12-06 18:03] VITALS: BP 95/53
[2019-12-06 20:00] VITALS: BP 97/54
--- NOTE | 2019-12-07 04:34 | NUR ---
PT RESTED WELL THROUGHOUT HOURLY ROUNDS, NO CONCERNS VOICED , NO CHANGES IN PT ASSESSMENT , WILL CONTINUE WITH CURRENT PLAN OF CARE.
--- NOTE | 2019-12-07 10:12 | NUR ---
cm went up to visit with pt rt dc today, home with 24hr supervision and assistance if needed, no driving, assist with pills and bills and aquabhishek lopez. pt sitting in wheel chair at nursing station, would answer with one word, sometimes would make senses and other times would not. dc possible on hold, cm not been notified be for know that dc is pushed back until wednesday. pt stated " got go to bathroom"/pt. cm assisted pt in to restroom via wheel chair. had to provided queuing to sit edge of seat, then grab bar and stand, cm needed for assist with gown not going into the toilet and then gave her some privacy and education to pull call light when done. noted she pulled callight right away. registered nurse cardiovascular icu assisted her with rest of alfonso care and incont of urine. will cont following as needed for dc needs.
--- NOTE | 2019-12-07 10:51 | NUR ---
ASSUMED CARE AT 0700. PATIENT IS ALERT AND ORIENTED X 1-2. PATIENT THINKS SHE IS IN N.M. PATIENT SETHI'S, DAY CARE ASSISTANT ARE EQUALS. LUNGS ARE DEMINISHED. ABD IS SOFT WITH BSX.4 UP IN W/C FOR MEALS WITH ST. CONTINUES ON THIN LQUIDS WITH SIPPY CUP. FALL AND SAFETY PROTOCOLS IN PLACE. NO C/O PAIN AT THIS TIME. CONTINUES TO PROGRESS SLOWLY TOWARDS D/C GOALS. WILL CONTINUE TO MONITER.
[2019-12-07 11:15] LABS: HEMATOCRIT 28.6 % (37.0-47.0); HEMOGLOBIN 9.7 gm/dL (12.0-15.0); MCH 29.4 pg (26.0-34.0); MCHC 33.8 g/dL (28.0-37.0); PLATELET COUNT 160 thou/uL (150-400); RBC 3.29 mil/uL (4.20-5.00); WBC 6.2 thou/uL (4.0-11.0)
[2019-12-07 11:37] LABS: ALBUMIN 2.4 g/dL (3.4-5.0); CALCIUM 8.4 mg/dL (8.5-10.1); CREATININE 0.7 mg/dL (0.6-1.0); POTASSIUM 3.6 mmol/L (3.5-5.1); TOTAL BILIRUBIN 0.6 mg/dL (0.2-1.0); TOTAL PROTEIN 5.7 g/dL (6.4-8.2)
[2019-12-07 12:01] LABS: ABSOLUTE NEUTROPHILS 3.5 thou/uL (1.4-8.2)
[2019-12-07 12:02] LABS: ANISOCYTOSIS 1+
[2019-12-07 12:04] LABS: ATYPICAL LYMPHS 3 %
--- NOTE | 2019-12-07 13:00 | NUR ---
PATIENT'S DISCHARGE HAS BEEN PUT ON HOLD PER RECOMMENDATIONS BY DR. ARIAS, NA+ IS VERY LOW, BP'S REMAIN LOW WITH SX OF HYPOPERFUSION AND MIDODRINE HAVING BEEN STARTED LESS THAN [address] GALLEGOS WAS NOTIFIED YESTERDAY OF THE MRI RESULTS SHOWING SOME CHANGES. PER TERRANCE LEE HEAD ATHLETIC TRAINER REPORT THIS AM, PT CONTINUES TO REQUIRE ACUTE MEDICAL ATTENTION AND IS NOT SAFE TO DISCHARGE AT THIS TIME. ANTICIPATING THAT SHE WILL RESPOND TO THE MEASURES THAT WE HAVE PUT INTO PLACE NOW WITH ATIF HOSE AND THE ADDITION OF MIDODRINE, AND HOPING FOR RECOVERY OF MENTAL STATUS WITH IMPROVED PERFUSION AND MEDICAL TREATMENT OF HYPONATREMIA. PT IS GETTING A CXR TODAY DUE TO WORSENED LUNG SOUNDS FOLLOWING DIET ADVANCEMENT. PT IS PARTICIPATING IN THERAPIES TODAY, AND HEAD ATHLETIC TRAINER IS RECOMMENDING DELAY OF DC UNTIL SUNDAY 12/10 WITH CONTINUED INTENSIVE THERAPIES AND MEDICAL TREATMENT.
[2019-12-07 16:04] VITALS: BP 100/59
[2019-12-07 18:21] LABS: URINE BILIRUBIN NEGATIVE (Negative); URINE BLOOD NEGATIVE (Negative); URINE CLARITY CLEAR; URINE COLOR YELLOW; URINE GLUCOSE-RANDOM* NEGATIVE (Negative); URINE KETONES NEGATIVE (Negative); URINE LEUKOCYTES NEGATIVE (Negative); URINE NITRITE POSITIVE (Negative); URINE PROTEIN (DIPSTICK) NEGATIVE (Negative); URINE UROBILINOGEN 0.2 E.U./dl (0.2-1.0)
[2019-12-07 18:31] LABS: BACTERIA >30 Many /HPF (None Seen); CASTS None Seen /LPF (None Seen); CRYSTALS None Seen /LPF (None Seen); SQUAMOUS 4-10 Moderate /LPF (0-3); URINE RBC None Seen /HPF (0-2); URINE WBC 0-5 Rare /HPF (0-5)
[2019-12-07 20:19] VITALS: BP 98/54
--- NOTE | 2019-12-08 02:53 | NUR ---
MEDS GIVEN CRUSHED IN APPLESAUCE WHILE PATIENT UP IN WHEELCHAIR, TO BED AT 8 PM PER REQUEST. UP TO TOILET AT THIS TIME WITH CONTACT GUARD ASSIST NEEDED. OTHERWISE RESTING WELL.
[2019-12-08 08:02] VITALS: BP 101/60
--- NOTE | 2019-12-08 11:40 | NUR ---
ASSUMED CARE AT 0700. PATIENT IS ALERT AND ORIENTED TO SELF. PATIENT SETHI'S, YARD CLERK ARE EQUAL. LUNGS ARE DEMINISHED ON THE RIGHT LOWER LOBE. ABD IS SOFT WITH BSX4. BP MED HELD PER "O" PARAMETERS. UP IN W/C TO DINING ROOM FOR BREAKFAST WITH ST. UP IN W/C AND ROAMING AROUND THE UNIT. FALL AND SAFETY PROTOCOLS IN PLACE. DENIES PAIN AT THIS TIME. CONTINUES TO PROGRESS SLOWLY TOWARDS D/C GOALS. WILL CONTINUE TO MONITER.
--- NOTE | 2019-12-08 13:52 | NUR ---
cm received voice message from speech therapy and bedside nurse that pt son needs to talk about 24hr supervision and or cg. cm called anne via phone call he stated " needing some help found some help in home, not allot of money but renny will be there some times when i am at work. i will make this work. i promised mom i would not but her in long-term. just little nervous. would she get medicaid now?"/anne. education on private duty, [employer], and sent web address for senior blue book for pd in the home ie ( [employer], [facility], [facility] [place] to be sent to [employer] to call son rt medicaid question. will cont following as needed for dc needs. " i will make it work, it would just be little easier if i was able to still cont working some"/beverley rodríguez.
[2019-12-08 20:10] VITALS: BP 114/68
[2019-12-09] VITALS (8 sets, daily range): BP systolic 78–112; BP diastolic 43–90
--- NOTE | 2019-12-09 02:14 | NUR ---
UP IN CHAIR MOST OF EVENING AND DID NOT WANT TO GO TO BED UNTIL 2200 DESPITE TROUBLE KEEPING HEAD UP AFTER 2100 AND SHOWING ME NON-EXISTENT OBJECTS IN HER HANDS. WEAK GETTING TO BED WITH ASSIST. HAS BEEN SLEEPING SINCE THEN. SON ANUPAM CALLED TO CHECK ON HER AND INFORMED OF HER DROWSINESS TONIGHT AND IS HOPING THAT SHE WILL GIVE HIM A CALL THIS WEEKEND, PLAN ENCOURAGING HER TO CALL HER SON TODAY
--- NOTE | 2019-12-09 11:16 | NUR ---
ASSUMED CARE AT 0700. REPORTS SLEPT WELL LAST NIGHT. NOTICED A NOTE TO NOTIFY DR. GALLEGOS ABOUT HER SODIUM 123 ON DECEMBER 06 AND INFORMED HIM THAT PT WILL BE DISCHARGE ON NEXT WEDNESDAY. DR. LIZETTE MICHAUD COVERS FOR DR. GALLEGOS TODAY AND WAS INFORMED ABOUT HER LOW SODIUM, D/C WEDNESDAY. HE ORDERS TO RECHECK BMP AND ORTHOSTATIC B/P AND LET HIM KNOW THE RESULT. PATIENT IS MORE ALERT, ORIENTED X3 TODAY. ABLE TO FOLLOW UP DIRECTION. KNOW HER MEDS. DENIES PAIN. PATIENT SETHI'S, GAS REVERSER ARE EQUAL. LUNGS ARE DEMINISHED ON THE RIGHT LOWER LOBE. ABD IS SOFT WITH BSX4. BP 89/52, HR 91. HELD METOPROLOL AND GAVE PRN MIDODRINE "O" PARAMETERS.UP IN W/C TO DINING ROOM FOR BREAKFAST AND ATE 25%. FALL AND SAFETY PROTOCOLS IN PLACE. DENIES PAIN AT THIS TIME. CONTINUES TO PROGRESS SLOWLY TOWARDS D/C GOALS. WILL CONTINUE TO MONITOR.
[2019-12-09 13:07] LABS: CALCIUM 8.9 mg/dL (8.5-10.1); CREATININE 0.8 mg/dL (0.6-1.0)
--- NOTE | 2019-12-10 00:52 | NUR ---
PT AMBULATING TO BATHROOM WITH WALKER AND ASSIST X1 AND IS TOLERATING FAIR. DENIES NEED FOR PAIN MEDICATION. RESTING COMFORTABLY. NO NEEDS VOICED. CALL LIGHT WITHIN REACH. FREQUENT OBSERVATION.
[2019-12-10 05:41] LABS: HEMATOCRIT 26.2 % (37.0-47.0); MCHC 34.2 g/dL (28.0-37.0); MCV 87.8 fL (80.0-100.0); RBC 2.99 mil/uL (4.20-5.00); WBC 5.5 thou/uL (4.0-11.0)
[2019-12-10 05:47] LABS: CALCIUM 8.3 mg/dL (8.5-10.1); CREATININE 0.7 mg/dL (0.6-1.0)
[2019-12-10 08:00] VITALS: BP 107/59; BP 123/51; BP 93/52
[2019-12-10 09:36] LABS: % SATURATION 22 % (20-39); IRON 38 ug/dL (50-170); TIBC 170 ug/dL (250-450)
[2019-12-10 10:43] LABS: FOLIC ACID 36.7 ng/mL (8.6-58.9)
--- NOTE | 2019-12-10 18:28 | NUR ---
ASSUMED CARE OF PT AT 0700. PT IS A&OX4, VITAL SIGNS UNCHANGED FROM TRENDS. ORTHOSTATIC BLOOD PRESSURE OBTAINED PER DR COVARRUBIAS ORDER, ARE DOCUMENTED, AND HE IS AWARE OF RESULTS, PT IMPULSIVE AT TIMES, FALL PRECAUTIONS IN PLACE AND NURSING WILL CONTINUE TO MONITOR.
[2019-12-10 19:12] VITALS: BP 100/62
--- NOTE | 2019-12-11 02:37 | NUR ---
PT ASSESSMENT COMPLETED AND VSS. MEDS GIVEN ORDERED AND WELL TOLERATED. FALL PRECAUTIONS IN PLACE. INC OF URINE. ASST WITH FREQUENT REPOSITION. SLEEPING WELL. DENIES NEEDS. WILL CONTINUE TO MONITOR FREQUENTLY. BARRIER CREAM APPLIED TO COCCYX - RED.
[2019-12-11 05:41] LABS: HEMATOCRIT 28.1 % (37.0-47.0); HEMOGLOBIN 9.6 gm/dL (12.0-15.0); MCH 30.2 pg (26.0-34.0); MCHC 34.3 g/dL (28.0-37.0); MCV 87.9 fL (80.0-100.0); RBC 3.2 mil/uL (4.20-5.00); WBC 5.6 thou/uL (4.0-11.0)
[2019-12-11 06:00] LABS: CALCIUM 8.5 mg/dL (8.5-10.1); CREATININE 0.7 mg/dL (0.6-1.0); POTASSIUM 4.1 mmol/L (3.5-5.1)
[2019-12-11 08:00] VITALS: BP 89/52
--- NOTE | 2019-12-11 08:30 | NUR ---
cm notified by dr moreno that pt is going to cont with dc home today. son going to come in for family training. going to order some lab work for hh to do, her md will complete rest of dc orders. cm sent up date to MD saenz. will cont following as needed for dc needs.
[2019-12-11 13:21] VITALS: BP 136/88
[2019-12-11] MEDS ORDERED: METOPROLOL SUCC25 M1 PO (14:07)
[2019-12-11] MEDS ORDERED: MIDODRINE HCL 55 M1 PO (14:07)
[2019-12-11] MEDS ORDERED: DEPAKOTE 250MG250 M1 PO (14:07)
--- NOTE | 2019-12-11 14:49 | NUR ---
ASSUMED CARE OF PT AT 0700. PT IS A&OX4 VITAL SIGNS ARE STABLE. PT DENIES PAIN, PARTICIPATED IN SCHEDULED THERAPIES. ORDERS FOR DISCHARGE TODAY. SCRIPTS CALLED IN TO PHARMACY OF CHOICE AT REQUEST OF DR. GALLEGOS. IV REMOVED BY FELLOW RN. SON ON UNIT AND DISCUSSED MEDICATION LIST, DISCHARGE INSTRUCTIONS, F/U APPOINTMENTS, AND EDUCATION. DENIED ANY QUESTIONS. DISCHARGE PAPERS SIGNED. PT LEFT UNIT AT APPROXIMATELY 1445.
--- NOTE | 2019-12-11 14:54 | NUR ---
PT DISCHARGING TODAY TO HOME WITH [facility] FAXED DC ORDERS/SUMMARY SPOKE WITH KALPESH IN INTAKE SHE RECEIVED ORDERS AND WILL NOTIFY PT TIME OF VISITS.
--- NOTE | 2019-12-11 16:03 | NUR ---
FAXED DC ORDERS/SUMMARY TO [facility] RECEIVED CONFIRMATION AND SPOKE WITH PEARL IN INTAKE SHE WILL NOTIFY PT TIME OF VISITS.
== END 2019-12-11 14:43 | disposition home health service (06) | DRG 65 ==
PROVIDERS: Family Medicine; Internal Medicine; Nurse Practitioner Family; Psychiatry & Neurology Psychiatry; ADMIT Physical Medicine & Rehabilitation; ATTEND Physical Medicine & Rehabilitation
DX: I63.9 Cerebral infarction, unspecified (principal); E87.1 Hypo-osmolality and hyponatremia; E78.5 Hyperlipidemia, unspecified; F32.9 Major depressive disorder, single episode, unspecified; I10 Essential (primary) hypertension; J44.9 Chronic obstructive pulmonary disease, unspecified; K59.00 Constipation, unspecified; K21.9 Gastro-esophageal reflux disease without esophagitis; R13.10 Dysphagia, unspecified; Z88.2 Allergy status to sulfonamides; Z88.8 Allergy status to other drugs, medicaments and biological substances; R53.81 Other malaise; D50.9 Iron deficiency anemia, unspecified; D64.9 Anemia, unspecified; Z85.71 Personal history of Hodgkin lymphoma; R00.0 Tachycardia, unspecified; F41.9 Anxiety disorder, unspecified; R56.9 Unspecified convulsions; G31.83 Neurocognitive disorder with Lewy bodies; F02.80 Dementia in other diseases classified elsewhere, unspecified severity, without behavioral disturbance, psychotic disturbance, mood disturbance, and anxiety; R26.0 Ataxic gait; F01.50 Vascular dementia, unspecified severity, without behavioral disturbance, psychotic disturbance, mood disturbance, and anxiety
CPT/HCPCS: 10112